=== PATIENT | female | born 1965 | race Two or more races ===

== ENCOUNTER 2025-05-04 13:43 | Inpatient (IN) | payer OTHER, SELFPAY ==
[2025-05-04 14:14] VITALS: BP 104/65; PULSE 100; RESP 20; TEMP 37.5; O2SAT 95
--- NOTE | 2025-05-04 14:32 | EKG_ITS ---
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
--- NOTE | 2025-05-04 14:34 | XR_ITS ---
Examination: Abdomen AP single view (3 images total Technique: AP portable supine abdomen, single view Exam date and time: 05/04/2025, 3:12 p.m. INDICATION: Upper gastric pain across mid abdomen for 2 days. COMPARISON: None. FINDINGS: At least moderate fecal material appears to be present in the right hemicolon including the proximal transverse colon. The proximal transverse colon is distended to 8.6 cm in caliber. There is mildly less pronounced gaseous distention of the remainder of the transverse colon. Mild versus moderate fecal material projects in the rectum, and very mild fecal material projects in the left hemicolon. There is mild gaseous distention of multiple small bowel loops in the left hemiabdomen most pronounced in the left lower quadrant and to a lesser degree the medial portion of the right lower quadrant. No free air identified. Nonspecific approximate 14 mm calcification is identified in the lower abdomen, projecting at the L3-L4 disc level on the left side. Very small phleboliths are seen in the pelvis bilaterally. Additional nonspecific calcification on the right side of the pelvis is seen, potentially within the gluteal subcutaneous fat. Difficult to assess on this exam. Impression: Nonspecific bowel findings. Findings could represent constipation and ileus. A follow-up contrast-enhanced CT is suggested for further evaluation.
--- NOTE | 2025-05-04 14:35 | EDNOTE_ITS ---
<Statement entered by Sarah Beth Bermudez MD - 05/05/25 16:14> I, Sarah Beth Bermudez MD, have reviewed the history, exam, and assessment of the patient. I have evaluated the patient independently and agree with the plan of care documented by [ ]. All diagnostic studies were reviewed and discussed. I confirm the diagnosis as documented by the Resident. I was present during the Medical Decision Making for this patient. The patient's plan of care was created between myself and the Resident and consistent with our discussion of the patient's case. ED Abdominal Pain RME/HPI General Chief Complaint: Abdominal Pain Stated complaint: SEVERE ABD PAIN 04/09 Time seen by provider: 05/04/25 16:17 Arrival date/time: 05/04/25 13:43 RME / HPI RME / HPI narrative: CC: Abdominal Pain Patient is a 60-year-old female with a past medical history of hypertension and and possible arthroplasty of the left knee about 1 week ago who presented to the emergency room via private vehicle with a chief complaint of severe abdominal pain, 10 out of 10. Pain is diffuse throughout all quadrants. Pain has been going on for about 1 week and worsened overnight. 10 out of 10. Patient has had decreased bowel movements no bowel movements reported for the past 2 to 3 days. Change in bowel consistency to yves. Post surgery for hernia patient has been taking [place] consistently. Denied history of abdominal surgery. No melena or hematochezia. No pyrexia or chills. KUB -distended large bowel loops, Tranverse colon 8.[address] abdomen/pelvis ordered Consult Gastroenterology 7:00 PM-Admit patient, repeat KUB on 05/05/2025, and add rectal tube Related Data Allergies Allergy/AdvReac Type Severity Reaction Status Date / Time Penicillins Allergy Severe Hives Verified 05/04/25 13:48 Sulfa (Sulfonamide Allergy Severe Hives Verified 05/04/25 13:48 Antibiotics) Review of Systems Review of Systems Narrative Review of Systems: General appearance: NO weight change, NO fatigue, NO weakness, NO fever, NO chills, NO night sweats, No cough Skin: NO rash, NO itching, NO sores, NO moles HEENT: NO Trauma, NO nausea, NO vomiting, NO visual changes, NO blurry vision, NO double vision, NO tinnitus, NO vertigo, NO ear discharge, NO rhinorrhea, NO stuffiness, NO sneezing, NO allergy, NO epistaxis. NO Hoarseness, NO sore throat, NO swollen neck. Cardiac: NO Palpitations, NO dyspnea on exertion, NO orthopnea, NO paroxysmal nocturnal dyspnea, NO edema Respiratory: NO Shortness of Breath, NO Wheezing, NO Cough, NO Sputum, NO hemoptysis GI:Yes appetite, Yes nausea, NO vomiting, NO dysphagia, Yes changes in bowel frequency, NO stool color, NO diarrhea, Yes constipation, NO hemetemesis, NO hemorrhoids, NO melena, NO hematechezia, yes abdominal pain, NO jaundice Renal: NO frequency, NO hesitancy, NO urgency, NO hematuria, NO nocturia, NO incontinence MSK: NO muscle weakness, NO gout, NO arthritis, NO muscle stiffness Neuro: NO headaches, NO tremors, NO weakness, NO paralysis, NO seizures, NO loss of consciousness, NO numbness. Hem: NO anemia, NO easy bruising/bleeding, NO petechiae, NO purpura Endo: NO heat/cold intolerance, NO excessive sweating, NO polyuria, NO polydipsia, NO polyphagia, NO thyroid problems, NO diabetes Pysch: NO mood, NO anxiety, NO depression ED Exam Narrative Physical exam: General Appearance: Alert & Oriented X3, well-nourished female who is lying in bed in acute distress, secondary to diffuse abdominal pain HEENT: Skull symmetrical and atraumatic. Conjunctivae pink and moist. Pupils equal, round, reactive to light and accommodation (PERRL). External ear without lesion or discharge. Straight, nares patient, mucosa pink, no discharge. Cardio: Normal Rate and Rhythm with S1 and S2 heart sounds. No murmurs or extra heart sounds auscultated. No bruits on carotid auscultation. No peripheral edema or cyanosis. Lungs: Symmetric with good expansion. Chest and back non-tender. Breath sounds vesicular without crackles, wheezing or rhonchi Abdomen: Diffuse-tenderness, Non-distended, hyporeactive Reactive Bowel Sounds Neuro: Alert, cooperative, oriented to person, place, and time. Speech clear. CN grossly intact. Upper motor strength 5/5 and Lower motor strength 5/5. Sensation intact. Course Quality Measures none Orders Category Date Time Status Location Man Q4H START 00 Care 05/04/25 15:46 Active Continuous Pulse Oximetry NOW Care 05/04/25 15:46 Completed EKG (ED ONLY) *Do not use* NOW Care 05/04/25 14:32 Completed Insert IV NOW Care 05/04/25 15:46 Active Insert Rectal Tube QSHIFT Care 05/04/25 19:11 Active NPO NOW Care 05/04/25 15:48 Active Consult to Gastroenterology Stat Cons 05/04/25 19:09 Ordered Diet NPO (NOW) Diet 05/04/25 15:[address] abdomen pelvis wo con Stat Exams 05/04/25 15:37 Completed EKG (ED Only) Stat Exams 05/04/25 14:32 Draft KUB [XR abdomen 1V] Routine Exams 05/05/25 06:00 Ordered KUB [XR abdomen 1V] Stat Exams 05/04/25 14:34 Completed Alcohol, Urine Stat Lab 05/04/25 16:25 Completed Blood Culture (Lab) Stat Lab 05/04/25 16:06 Received CBC Stat Lab 05/04/25 14:48 Completed Comprehensive Metabolic Panel Stat Lab 05/04/25 14:48 Completed Drug Screen,Urine Stat Lab 05/04/25 16:25 Completed HCG Qualitative,Urine Stat Lab 05/04/25 16:25 Completed Lactic Acid [Lactate (Lactic Acid)] Stat Lab 05/04/25 16:00 Completed Lactic Acid, 3 HR Stat Lab 05/04/25 19:15 Ordered Lipase Stat Lab 05/04/25 14:48 Completed Magnesium Stat Lab 05/04/25 14:48 Completed Partial Thromboplastin Time Stat Lab 05/04/25 14:48 Completed Prothrombin Time with INR Stat Lab 05/04/25 14:48 Completed Urinalysis, C/S if Indicated Stat Lab 05/04/25 16:25 Completed Urine Culture Stat Lab 05/04/25 16:25 Received HYDROmorphone INJ [Dilaudid Inj] Med 05/04/25 17:55 Discontinued 1 mg IVP X1 ONE Morphine* Inj Med 05/04/25 14:44 Discontinued 2 mg IM X1 ONE Morphine* Inj Med 05/04/25 15:32 Discontinued 2 mg IM X1 ONE Morphine* Inj Med 05/04/25 14:33 Discontinued 2 mg IVP X1 ONE Morphine* Inj Med 05/04/25 15:45 Discontinued 2 mg IVP X1 ONE Ondansetron Inj [Zofran Inj] Med 05/04/25 15:46 Active 4 mg IVP Q6HR PRN Ringers Lactated 1000 ml [Lactated Ringers] 1,000 ml Med 05/04/25 17:23 Dis continued IV 999 mls/hr Ringers Lactated 1000 ml [Lactated Ringers] 1,000 ml Med 05/04/25 17:23 Discontinued IV 999 mls/hr Ringers Lactated 1000 ml [Lactated Ringers] 1,000 ml Med 05/04/25 17:55 Discontinued IV 999 mls/hr Ringers Lactated 500 ml [Lactated Ringers] 500 ml Med 05/04/25 18:00 Discontinued IV 999 mls/hr ceFAZolin/D5W 1 GM IVPB [Ancef Ivpb] Med 05/04/25 15:41 Discontinued 1 gm in 50 ml IV X1 cefTRIAXone/D5w 1gm IV premix [Rocephin/D5w 1gm IV Med 05/04/25 15:56 Discontinued premix] 1 gm in 50 ml IV X1 metroNIDAZOLE/NS 500 MG IVPB [Flagyl 500 mg IV] Med 05/04/25 15:42 Discontinued 500 mg in 100 ml IV X1 Vital Signs Vital signs: Vital Signs Temperature 99.5 F 05/04/25 14:14 Pulse Rate 100 05/04/25 14:14 Respiratory Rate 20 05/04/25 14:14 Blood Pressure 104/65 05/04/25 14:14 Pulse Oximetry (%) 95 05/04/25 14:14 Oxygen Delivery Method Room Air 05/04/25 14:14 Abdominal Pain MDM Patient data External records reviewed:: None Clinical information provided by:: patient and family Social determinants that could affect healthcare access:: none Patient has the following chronic illnesses:: History of hypertension and recent left knee surgery How is presenting disease/condition affected by chronic disease/condition?: exacerbated by (by recent surgery ) Evaluation data The following diagnostics were reviewed and interpreted by me:: lab results and EKG tracing(s) Lab and/or radiology exams considered but not ordered:: None Interpretation Summary: Sepsis-elevated WBC, HR >90, Lactic acid, UTI, & distended large bowel Medications / Prescriptions Medications or Prescriptions considered but not ordered:: none Medication administrations:: Medication Administration History Ondansetron HCl (Ondansetron Inj 2 Mg/Ml Inj 2 Ml) 4 mg IVP Q6HR PRN; Protocol PRN Reason: NAUSEA OR VOMITING Stop: 06/03/25 15:45 Last Admin: 05/04/25 16:01 Dose: 4 mg Documented By: MIREILLE Discontinued Medications Hydromorphone HCl (Hydromorphone Inj 2 Mg/Ml Vial) 1 mg IVP X1 ONE Stop: 05/04/25 17:56 Last Admin: 05/04/25 18:03 Dose: 1 mg Documented By: CARRIE Cefazolin Sodium/Dextrose (Ancef Ivpb) 1 gm in 50 mls @ 100 mls/hr IV X1 ONE Stop: 05/04/25 16:10 Last Admin: 05/04/25 16:00 Dose: Not Given Documented By: MIREILLE Non-Admin Reason: Cancelled by Provider Metronidazole (Flagyl 500 Mg Iv) 500 mg in 100 mls @ 100 mls/hr IV X1 ONE Stop: 05/04/25 16:41 Last Infusion: 05/04/25 18:46 Dose: Infused Documented By: Admin: 05/04/25 17:41 Dose: 100 mls/hr Documented By: CARRIE Ceftriaxone Sodium/Dextrose (Rocephin/D5w 1gm Iv Premix) 1 gm in 50 mls @ 100 mls/hr IV X1 ONE Stop: 05/04/25 16:25 Last Infusion: 05/04/25 16:40 Dose: Infused Documented By: Admin: 05/04/25 16:08 Dose: 100 mls/hr Documented By: MIREILLE Lactated Ringer's (Lactated Ringers) 1,000 mls @ 999 mls/hr IV .Q1H1M ONE Stop: 05/04/25 18:23 Last Infusion: 05/04/25 18:46 Dose: Infused Documented By: Admin: 05/04/25 17:39 Dose: 999 mls/hr Documented By: CARRIE Lactated Ringer's (Lactated Ringers) 1,000 mls @ 999 mls/hr IV .Q1H1M ONE Stop: 05/04/25 18:23 Last Admin: 05/04/25 17:42 Dose: Not Given Documented By: GM Non-Admin Reason: Discontinued Lactated Ringer's (Lactated Ringers) 500 mls @ 999 mls/hr IV .Q31M ONE Stop: 05/04/25 18:30 Lactated Ringer's (Lactated Ringers) 1,000 mls @ 999 mls/hr IV .Q1H1M ONE Stop: 05/04/25 18:55 Morphine Sulfate (Morphine Sulf Inj 4 Mg/Ml Vial) 2 mg IVP X1 ONE Stop: 05/04/25 14:34 Last Admin: 05/04/25 14:55 Dose: Not Given Documented By: Non-Admin Reason: Cancelled by Provider Morphine Sulfate (Morphine Sulf Inj 4 Mg/Ml Vial) 2 mg IM X1 ONE Stop: 05/04/25 14:45 Last Admin: 05/04/25 14:53 Dose: 2 mg Documented By: Morphine Sulfate (Morphine Sulf Inj 4 Mg/Ml Vial) 2 mg IM X1 ONE Stop: 05/04/25 15:33 Last Admin: 05/04/25 16:01 Dose: Not Given Documented By: MIREILLE Non-Admin Reason: Cancelled by Provider Morphine Sulfate (Morphine Sulf Inj 4 Mg/Ml Vial) 2 mg IVP X1 ONE Stop: 05/04/25 15:46 Last Admin: 05/04/25 15:59 Dose: 2 mg Documented By: MIREILLE same as above Consultations Consultation(s) initiated? (list below): No Diagnosis Differential diagnosis abdominal pain: abdominal pain, acute appendicitis, constipation, pancreatitis and small bowel obstruction Most likely diagnosis given after review of the tests above:: Concern for sepsis secondary to UTI and concern for intra-abdominal infection with possible large bowel obstruction, KUB and CT Abdomen noted to have distended bowels. Consulted GI, Dr. Alonzo, recommending patient be admitted for large bowel distention, constipation, and concern for large bowel obstruction. Repeat KUB AM & insert rectal tube. Admission Indicated Admission indicated?: indicated Explain why admission is indicated or not indicated:: Admission indicated given sepsis with possible source of infection of uti and intra-abdominal - The patient's plan was discussed with attending Dr. Aidan Ding MD PGY2 Internal Medicine Admission Request Was there a request for admission?: No Disposition Plan Disposition Plan: Admit Discharge Plan Plan Patient Disposition: Admit Acute Care w/in Hospital Patient condition on transfer: Stable Prescriptions/Referrals Referrals: No Primary/Family,Physician [Primary Care Provider] - In 1 week Problem List Clinical Impression: Large bowel obstruction Patient/Caregiver Discharge Instructions Print Language: Azeri Stand Alone Forms: [employer] Award Info., Patient Portal Info Letter
[2025-05-04] MEDS: MORPHINE SULF INJ 4 MG/ML VIAL 2 MG IM (14:53)
[2025-05-04 15:06] LABS: Basophils # (Auto) 0.1 Thou/mm3 (0.0-0.2); Basophils % (Auto) 1 % (0-2.5); Eosinophils # (Auto) 0.2 Thou/mm3 (0.0-0.5); Eosinophils % (Auto) 1 % (0-10); Hematocrit 33.2 % (36.0-46.0); Hemoglobin 11.1 g/dL (12.0-16.0); Immature Granulocytes Auto 0.10 Thou/mm3 (0.00-0.00); Lymphocytes # (Auto) 2.4 Thou/mm3 (1.0-4.8); Lymphocytes % (Auto) 12 % (10-50); Mean Corpuscular HGB Conc 33.4 g/dl (31.0-37.0); Mean Corpuscular Hemoglobin 27.3 pg (25.0-35.0); Mean Corpuscular Volume 82 fL (80-100); Monocytes # (Auto) 1.8 Thou/mm3 (0.0-0.8); Monocytes % (Auto) 9 % (0-12); Neutrophils # (Auto) 15.5 Thou/mm3 (1.8-7.7); Neutrophils % (Auto) 77 % (37-80); Nucleated Red Blood Cell # 0.00 Thou/mm3 (0.00-0.00); Nucleated Red Blood Cell % 0 /100 WBC (0); Platelet Count 419 Thou/mm3 (140-440); RDW Standard Deviation 42.4 fL (36.4-46.3); Red Blood Count 4.06 Miln/mm3 (4.00-5.20); White Blood Count 20.1 Thou/mm3 (3.6-11.0)
[2025-05-04 15:20] LABS: Alanine Aminotransferase 18 U/L (10-49); Albumin, Serum 4.4 gm/dL (3.4-4.8); Albumin/Globulin Ratio 1.9 (1.2-2.2); Alkaline Phosphatase 112 U/L (46-116); Anion Gap 10 (7-16); Aspartate Amino Transferase 25 U/L (0-34); BUN/Creatinine Ratio 19 Ratio (12-20); Bilirubin,Total 0.8 mg/dL (0.3-1.2); Blood Urea Nitrogen 15 mg/dL (9-23); Calcium 9.4 mg/dL (8.3-10.6); Calcium (Corrected) 9.4 mg/dL (8.5-10.1); Carbon Dioxide 20.3 mMol/L (20.0-31.0); Chloride 102 mMol/L (98-107); Creatinine (Component) 0.8 mg/dL (0.6-1.3); Globulin 2.3 gm/dL (2.3-3.5); Glucose 155 mg/dL (74-106); Lipase 30 U/L (12-53); Magnesium 2.2 mg/dL (1.6-2.6); Osmolality,Calculated 268 (275-295); Potassium 4.0 mMol/L (3.4-5.1); Sodium 132 mMol/L (136-145); Total Protein 6.7 gm/dL (5.7-8.2); eGFR > 60 See Note
[2025-05-04 15:22] LABS: INR 1.0 (0.9-1.3); Partial Thromboplastin Time 24.6 Seconds (22.0-36.0); Prothrombin Time 10.5 Seconds (9.0-12.2)
--- NOTE | 2025-05-04 15:37 | XR_ITS ---
Examination: CT abdomen and pelvis without contrast. Coronal 3-D reconstructions. Sagittal 2-D reconstructions. Date and time of exam: 05/04/2025, 5:24 p.m. INDICATION: Epigastric pain. Assessment for ileus versus bowel obstruction. COMPARISON: Same day abdominal radiograph. CTDI: vol (mGy): 8.40 DLP: (mGycm): 519 Technique: Axial images of the abdomen have been obtained, 3 mm slice thickness Intravenous contrast material has not been administered. Low dose protocols were performed. One or more of the following dose reduction techniques were used; automated exposure control, adjustment of the mA and/or KV according to patient size, use of iterative reconstruction technique. Findings: Lack of intravenous contrast limits evaluation of solid organs, vasculature, and lymph nodes. Lower thorax: Mild bibasilar dependent subsegmental atelectases are present. No pleural effusions. Hernia is present, measuring approximately 5.7 x 4.9 cm in transaxial dimensions without acute complication. Heart size is within normal limits. Minimal right-sided pericardial fluid noted. Liver: Hepatic size and contours are within normal limits. Punctate calcific foci are visualized in the posterior aspect of the right hepatic lobe. Biliary system: Prominent gallbladder distention may be due to fasting state. No calcified gallstones or findings concerning for acute cholecystitis or biliary ductal obstruction. Spleen: Within normal limits of size. No discrete mass. Pancreas: Generalized pancreatic atrophy but without concerning main duct dilatation or acute inflammation. Adrenal glands: No significant findings. Kidneys: No contour-deforming solid mass. No calculi or hydronephrosis. Bladder: Suboptimal assessment due to under distention but no calculus is seen. Pelvic organs: No masses or acute findings. Bowel/Peritoneal cavity: Limited assessment without IV and oral contrast as well as segments of underdistention. There is extensive distention of the colon from the cecum through the transverse colon with relatively less pronounced distention of the descending colon. The cecum is dilated up to 8.6 cm in caliber. The mid transverse colon measures 6.1 cm in caliber, and the proximal descending colon measures approximately 4 cm in caliber. There is a relatively ahaustral appearance of the descending colon. There is a large amount of liquid with intermixed gas and fecal matter in the ascending colon and transverse colon, in addition to the descending colon there is slight mural thickening and very mild diffuse pericolonic fat stranding throughout the descending colon. There is no significant mural thickening involving the majority of the transverse colon or of the ascending colon including cecum. No evidence for pneumatosis coli. There is a moderate degree of condensed fecal matter throughout the sigmoid colon and to a mild degree in the rectum. Sigmoid diverticulosis is present without evidence for acute diverticulitis. There is no evidence for an obstructing distal colonic mass. Small bowel up to demonstrate mild distention with scattered gas-liquid levels but without evidence for inflammatory mural thickening, pneumatosis or mass. No evidence for ascites, pneumoperitoneum or portal venous gas. Lymph nodes/retroperitoneum: Densely calcified posterior mesenteric lymph node at midline measures approximately 11 mm and correlates with the preceding radiographic finding. Additional dense calcified mesenteric lymph node about the midline measures 11 mm AP as well. No pathologically enlarged lymph nodes or other masses. No hematoma or other abnormal collections. Vessels: Aortobiiliac atherosclerotic calcifications without aneurysm. Normal caliber abdominal aorta. Compression of the left common iliac vein between the right common iliac artery and underlying vertebra noted, compatible with May-Thurner syndrome. Abdominal/Pelvic wall: Minimal fat-containing umbilical hernia noted. Musculoskeletal: Multifocal degenerative changes with otherwise no evidence for recent fracture or aggressive lesion. IMPRESSION: Redemonstration of extensive distention of the colon, most severely the ascending colon followed by the transverse colon with gas-liquid and fecal matter throughout. There is slight mural thickening and pericolonic fat stranding involving the descending colon which is relatively ahaustral in appearance. There is no evidence for an obstructing mass although there is an condensed amount of fecal matter in the sigmoid colon but to a lesser degree the rectum. The findings are nonspecific but differential diagnosis includes Luis syndrome or potentially toxic colitis. No evidence for pneumatosis coli, portal venous gas, pneumoperitoneum or ascites. Hiatal hernia without acute complication.
[2025-05-04] MEDS: MORPHINE SULF INJ 4 MG/ML VIAL 2 MG IVP (15:59)
[2025-05-04] MEDS: ONDANSETRON INJ 2 MG/ML INJ 2 ML 4 MG IVP (16:01)
[2025-05-04] MEDS: cefTRIAXone/D5w 1gm IV premix 1 GM/50 ML BAG IV (16:08)
[2025-05-04 16:17] VITALS: BP 110/55; PULSE 95; RESP 16; TEMP 37.1; O2SAT 96; BMI 31.6
[2025-05-04 16:18] LABS: Lactate (Lactic Acid) 2.2 mMol/L (0.4-2.0)
[2025-05-04 16:35] LABS: Collection Type, Urine Clean Catch
[2025-05-04 16:42] LABS: HCG Qualitative,Urine Negative
[2025-05-04 16:49] LABS: Bacteria,Urine 4+; Bilirubin,Urine 1+ (Negative); Blood,Urine Negative (Negative); Color,Urine Drk-Yellow (Lt Yel-Yel); Glucose, Urine Negative (Negative); Hyaline Casts,Urine 1 /hpf (0-1); Ketones,Urine Trace (Negative); Leukocyte Esterase,Urine Positive (Negative); Nitrite,Urine Negative (Negative); PH,Urine 6.0 (5.0-7.0); Protein,Urine 1+ (Neg - Trace); RBC,Urine 13 /hpf (0-3); Specific Gravity,Urine 1.026 (1.001-1.035); Squamous Epithelial Cell,Urine 10 /hpf (0-5); Urobilinogen,Urine 6.0 mg/dL (0.0-1.0); WBC,Urine 86 /hpf (0-5)
[2025-05-04 16:52] LABS: Alcohol, Urine Negative (Negative); Amphetamine/Methamp Scrn,U Negative (Negative); Barbiturate Screen,Urine Negative (Negative); Benzodiazepines Screen,Urine Negative (Negative); Benzoylecgonine Screen, Ur Negative (Negative); Fentanyl Screen,Urine Negative (Negative); Opiate Screen,Urine Positive (Negative); THC Screen,Urine Negative (Negative)
[2025-05-04 17:18] LABS: Clarity,Urine Cloudy (Clear/Hazy); Culture Indicated,Urine Yes
--- NOTE | 2025-05-04 17:19 | PC.NURSE ---
PT'S DAUGHTER, ISAK, UPDATED REGARDING PT'S POC AT BEDSIDE.
[2025-05-04] MEDS: RINGERS LACTATED 1000 ML 1,000 ML 999 ML IV ×2 (17:39→19:32)
[2025-05-04] MEDS: metroNIDAZOLE/NS 500 MG IVPB 500 MG/100 ML BAG 100 MG IV (17:41)
[2025-05-04] MEDS: HYDROmorphone INJ 2 MG/ML VIAL 1 MG IVP (18:03)
[2025-05-04 18:05] VITALS: BP 125/69; PULSE 107; RESP 16; TEMP 36.9; O2SAT 95
--- NOTE | 2025-05-04 18:38 | PD.EDADDENDU ---
Emergency Room Addendum Addendum Narrative: 1800: Care assumed from Dr. Ding, attending Dr. Bermudez. Past medical, surgical, social and family history reviewed. Vitals and home medications reviewed. Results and treatment plan discussed. I will assume the care of the patient at this time and will follow the patient. Please refer to the emergency department record for history and examination from initial visit.
--- NOTE | 2025-05-04 19:12 | PD.IMCONS ---
HPI Data of Consult Primary Care Provider: Physician No Primary/Family Consult Narrative Reason for consult: Abdominal distention, pain abdomen, abnormal CTAP History of present illness: Full consult to follow after review of the imaging studies cc:: cc: Meds Home Medications and Allergies Home Medications ?Medication ?Instructions ?Recorded ?Confirmed ?Type amlodipine 10 mg tablet 10 mg PO DAILY 05/05/25 05/05/25 History aspirin 81 mg chewable tablet 1 tab PO Q12HR 05/05/25 05/05/25 History celecoxib 200 mg capsule 200 mg PO Q12H PRN pain 05/05/25 05/05/25 History losartan 100 mg tablet 100 mg PO DAILY 05/05/25 05/05/25 History pregabalin 150 mg capsule 150 mg PO Q12H PRN pain 05/05/25 05/05/25 History Allergies Allergy/AdvReac Type Severity Reaction Status Date / Time Penicillins Allergy Severe Hives Verified 05/04/25 13:48 Sulfa (Sulfonamide Allergy Severe Hives Verified 05/04/25 13:48 Antibiotics) Exam Vital Signs Temp Pulse Resp BP Pulse Ox O2 Del Method 98.4 F 107 H 16 125/69 95 Room Air 05/04/25 18:05 05/04/25 18:05 05/04/25 18:05 05/04/25 18:05 05/04/25 18:05 05/04/25 18:05 Results Labs 05/05/25 04:50 05/05/25 04:50 Labs: Short CBC 05/04/25 Range/Units 14:48 WBC 20.1 H (3.6-11.0) Thou/mm3 Hgb 11.1 L (12.0-16.0) g/dL Hct 33.2 L (36.0-46.0) % Plt Count 419 (140-440) Thou/mm3 BMP 05/04/25 14:48 Sodium 132 L Potassium 4.0 Chloride 102 Carbon Dioxide 20.3 BUN 15 Creatinine 0.8 Glucose 155 H Calcium 9.4 Liver Function 05/04/25 Range/Units 14:48 Total Bilirubin 0.8 (0.3-1.2) mg/dL AST 25 (0-34) U/L ALT 18 (10-49) U/L Alkaline Phosphatase 112 (46-116) U/L Albumin 4.4 (3.4-4.8) gm/dL Urine 05/04/25 Range/Units 16:25 Urine Color Drk-Yellow A (Lt Yel-Yel) Urine Clarity Cloudy A (Clear/Hazy) Urine pH 6.0 (5.0-7.0) Ur Specific [place] 1.026 (1.001-1.035) Urine Protein 1+ A (Neg - Trace) Urine Glucose (UA) Negative (Negative)
[2025-05-04 19:15] LABS: Reflex Lactate? Y
[2025-05-04] MEDS: RINGERS LACTATED 500 ML 500 ML 999 ML IV (19:32)
[2025-05-04 19:36] VITALS: BP 127/78; PULSE 114; RESP 18; TEMP 37.8; O2SAT 94
[2025-05-04 19:50] VITALS: BP 127/78; PULSE 115; RESP 16; O2SAT 93
[2025-05-04 20:04] LABS: Lactic Acid, 3 HR 2.1 mMol/L (0.4-2.0)
[2025-05-04] MEDS: HYDROmorphone INJ 2 MG/ML VIAL 0.5 MG IVP (21:26)
[2025-05-04] MEDS: RINGERS LACTATED 1000 ML 1,000 ML 60 ML IV (21:27)
--- NOTE | 2025-05-04 22:07 | ESHP_ITS ---
<Statement entered by Presley Barrientos MD - 05/05/25 07:06> I have discussed and was present for the essential components of the history, physical examination, diagnosis, and treatment plan with the resident. I agree with the patient's care as documented by the resident and amended herein by me. Presley Barrientos MD FACP. Documentation for date of: 05/04/25 HPI History of Present Illness History of present illness: Patient is a 60-year-old female with a past medical history of hypertension and and possible arthroplasty of the left knee about 1 week ago who presented to the emergency room via private vehicle with a chief complaint of severe abdominal pain, 10 out of 10. ED Course Summary: Vitals: 104/65 HR 100 RR 20 T 99.5F O2 sat 95% Labs WBC 20.1 Hgb 11.1 Na 132 Imaging KUB -distended large bowel loops, Tranverse colon 8.6 cm CTAP: [place] syndrome or potentially toxic colitis Treatment: Morphine, LR, ceftriaxone, cefazolin, metronidazole, dilaudid, rectal tube placed Consults GI for toxic colitis Upon initial evaluation patient denies having any bowel movements for 1 week since her left knee surgery. Endorses pain is diffuse throughout all quadrants. Pain has been going on for about 2-3 days and worsened overnight. 10 out of 10 but improving with IV pain management. Patient has been taking [place] consistently. Denied history of abdominal surgery. No melena or hematochezia. No pyrexia or chills. She endorses some discomfort with urination and the urine sample is cola colored. Code: Full Insulin: No Medical Hx: HTN pre-diabetes Medications: Pending med rec, per chart review amlodipine 10mg losartan, pregabalin, elecoxib and aspirin Allergies: Penicillin (hives) sulfa drugs (blisters) Surgical history: L knee arthroplpasty 1 week ago Living: With sons while recovering Alcohol: Denies Cigarettes/tobacco: Denies Recreational drugs: Denies Patient admitted for psuedo large bowel obstruction vs toxic colitis All 12 systems reviewed and were negative except otherwise stated in HPI. Exam Vital Signs Temp Pulse Resp BP Pulse Ox O2 Del Method 100.1 F 115 H 16 127/78 93 L Room Air 05/04/25 19:36 05/04/25 19:50 05/04/25 19:50 05/04/25 19:50 05/04/25 19:50 05/04/25 19:50 Narrative Exam GENERAL APPEARANCE: AOx4. Uncomfortable, activity normal for age, well developed/ well nourished, no cyanosis, pallor, or diaphoresis. HEENT: Normocephalic atraumatic, no facial trauma, neck is supple. Lids/conjunctiva normal. Mucous membranes moist, nares normal, lips/teeth normal uvula midline without oral pharyngeal erythema, exudate or swelling TMs normal bilaterally. No lymphangitis/lymphedema. CARDIAC: Tachycardic, S1+S2 heard. No murmurs, rubs, or gallops noted RESPIRATORY: Minimal effort due to abdominal tenderness, speaks in full sentences, no tripod position, no accessory muscle use. Lungs clear to auscultation without rhonchi, wheezes, rales ABDOMINAL: NBS. Soft, ND, diffuse TTP sharp pain. No evidence of fluid wave. No pulsatile masses on exam, rebound tenderness, Humphrey sign or pain over Mcburney's point. MUSCLES/EXTREMITIES: L leg bruising and knee bandage from recent surgery DERM: Warm, pink and dry. No rashes, dermatoses, petechiae or lesions. NEUROLOGICAL: Speech is clear and appropriate. Normal level of consciousness. Gait and coordination are normal. 5/5 strength in all extremities. PSYCH: Normal mood and affect. Judgement/competence is appropriate Results: Labs 05/04/25 14:48 05/04/25 14:48 Labs: Short CBC 05/04/25 Range/Units 14:48 WBC 20.1 H (3.6-11.0) Thou/mm3 Hgb 11.1 L (12.0-16.0) g/dL Hct 33.2 L (36.0-46.0) % Plt Count 419 (140-440) Thou/mm3 BMP 05/04/25 14:48 Sodium 132 L Potassium 4.0 Chloride 102 Carbon Dioxide 20.3 BUN 15 Creatinine 0.8 Glucose 155 H Calcium 9.4 Liver Function 05/04/25 Range/Units 14:48 Total Bilirubin 0.8 (0.3-1.2) mg/dL AST 25 (0-34) U/L ALT 18 (10-49) U/L Alkaline Phosphatase 112 (46-116) U/L Albumin 4.4 (3.4-4.8) gm/dL Urine 05/04/25 Range/Units 16:25 Urine Color Drk-Yellow A (Lt Yel-Yel) Urine Clarity Cloudy A (Clear/Hazy) Urine pH 6.0 (5.0-7.0) Ur Specific [place] 1.026 (1.001-1.035) Urine Protein 1+ A (Neg - Trace) Urine Glucose (UA) Negative (Negative) Quality Measures Quality Measures none Medications Home Medications and Allergies Home Medications ?Medication ?Instructions ?Recorded ?Confirmed ?Type amlodipine 10 mg tablet 10 mg PO DAILY 05/05/2511/22 History aspirin 81 mg chewable tablet 1 tab PO Q12HR 05/05/25 05/05/25 History celecoxib 200 mg capsule 200 mg PO Q12H PRN pain 11/2205/05/25 History losartan 100 mg tablet 100 mg PO DAILY 05/05/2511/22 History pregabalin 150 mg capsule 150 mg PO Q12H PRN pain 11/2205/05/25 History Allergies Allergy/AdvReac Type Severity Reaction Status Date / Time Penicillins Allergy Severe Hives Verified 05/04/25 13:48 Sulfa (Sulfonamide Allergy Severe Hives Verified 05/04/25 13:48 Antibiotics) Visit Medications Acetaminophen (Acetaminophen 325 Mg Tablet) 650 mg PO Q6H PRN PRN Reason: Fever >100.4 or pain 1-3 Stop: 06/03/25 20:59 Hydromorphone HCl (Hydromorphone Inj 2 Mg/Ml Vial) 0.5 mg IVP Q4HR PRN PRN Reason: pain 7-10 Stop: 05/09/25 21:18 Last Admin: 05/04/25 21:26 Dose: 0.5 mg Lactated Ringer's (Lactated Ringers) 1,000 mls @ 60 mls/hr IV .[id number] KIRAN Stop: 06/03/25 21:13 Last Admin: 05/04/25 21:27 Dose: 60 mls/hr Ondansetron HCl (Ondansetron Inj 2 Mg/Ml Inj 2 Ml) 4 mg IVP Q6HR PRN; Protocol On Hold: 05/04/25 22:01 PRN Reason: NAUSEA OR VOMITING Stop: 06/03/25 15:45 Last Admin: 05/04/25 16:01 Dose: 4 mg Pantoprazole Sodium (Pantoprazole Inj 40 Mg Vial) 40 mg IVP QDAY KIRAN Stop: 06/04/25 08:59 Discontinued Medications Benzocaine (Benzocaine 20% (Hurricaine) [place] 1 Dose) 0 dose TOP X1 ONE Stop: 05/04/25 21:12 Last Admin: 05/04/25 21:54 Dose: Not Given Hydromorphone HCl (Hydromorphone Inj 2 Mg/Ml Vial) 1 mg IVP X1 ONE Stop: 05/04/25 17:56 Last Admin: 05/04/25 18:03 Dose: 1 mg Cefazolin Sodium/Dextrose (Ancef Ivpb) 1 gm in 50 mls @ 100 mls/hr IV X1 ONE Stop: 05/04/25 16:10 Last Admin: 05/04/25 16:00 Dose: Not Given Metronidazole (Flagyl 500 Mg Iv) 500 mg in 100 mls @ 100 mls/hr IV X1 ONE Stop: 05/04/25 16:41 Last Infusion: 05/04/25 18:46 Dose: Infused Ceftriaxone Sodium/Dextrose (Rocephin/D5w 1gm Iv Premix) 1 gm in 50 mls @ 100 mls/hr IV X1 ONE Stop: 05/04/25 16:25 Last Infusion: 05/04/25 16:40 Dose: Infused Lactated Ringer's (Lactated Ringers) 1,000 mls @ 999 mls/hr IV .Q1H1M ONE Stop: 05/04/25 18:23 Last Infusion: 05/04/25 18:46 Dose: Infused Lactated Ringer's (Lactated Ringers) 1,000 mls @ 999 mls/hr IV .Q1H1M ONE Stop: 05/04/25 18:23 Last Admin: 05/04/25 17:42 Dose: Not Given Lactated Ringer's (Lactated Ringers) 500 mls @ 999 mls/hr IV .Q31M ONE Stop: 05/04/25 18:30 Last Infusion: 05/04/25 20:50 Dose: Infused Lactated Ringer's (Lactated Ringers) 1,000 mls @ 999 mls/hr IV .Q1H1M ONE Stop: 05/04/25 18:55 Last Infusion: 05/04/25 20:50 Dose: Infused Morphine Sulfate (Morphine Sulf Inj 4 Mg/Ml Vial) 2 mg IVP X1 ONE Stop: 05/04/25 14:34 Last Admin: 05/04/25 14:55 Dose: Not Given Morphine Sulfate (Morphine Sulf Inj 4 Mg/Ml Vial) 2 mg IM X1 ONE Stop: 05/04/25 14:45 Last Admin: 05/04/25 14:53 Dose: 2 mg Morphine Sulfate (Morphine Sulf Inj 4 Mg/Ml Vial) 2 mg IM X1 ONE Stop: 05/04/25 15:33 Last Admin: 05/04/25 16:01 Dose: Not Given Morphine Sulfate (Morphine Sulf Inj 4 Mg/Ml Vial) 2 mg IVP X1 ONE Stop: 05/04/25 15:46 Last Admin: 05/04/25 15:59 Dose: 2 mg Assessment & Plan Plan Patient is a 60-year-old female with a past medical history of hypertension and and possible arthroplasty of the left knee about 1 week ago who presented to the emergency room via private vehicle with a chief complaint of severe abdominal pain, 10 out of 10. Patient admitted for psuedo large bowel obstruction vs toxic colitis. #Psuedo large bowel obstruction vs toxic colitis #Lactic acidosis Recent L knee surgery, on opiates, has no BM in one week. Worsening abdominal pain. lactic acid 2.1 WBC 20.1. Imaging KUB -distended large bowel loops, Tranverse colon 8.6 cm CTAP: [place] syndrome or potentially toxic colitis Plan: -GI consulted (Dr. Alonzo) -Rectal tube placed -IV tylenol pain control - limit to 4g/day -Dilaudid pain control -Ceftriaxone 1g IV Q12HR -IV LR -NPO #UTI Urinary symptoms, Urine cola colored, +1 protein RBC 13 WBC 86 Sq epithelial 10H Bacteria +4, not a clean catch, but also lots of blood and dark color. Plan: -FUP urine cx -Ceftriaxone 1g IV Q12HR #Asymptomatic Hyponatremia Na 132 Could be dilutional due to mass fluids given in ED. Plan: -CTM -Consider fluid restrictions following GI procedure and resolution of lactic acidosis #Hx of HTN Can consider restarting home meds of amlodipine or losartan pending med rec Health Maintenance: Code status: Full DVT prophylaxis: SCDs pending GI procedure GI prophylaxis: protonix Diet: NPO pending procedure [place]: None Lines: PIV Supplemental O2: None Disposition: Med surg Patient seen and reviewed with attending Dr. Barrientos. Note written by Nicko Cullen MD PGY-1
[2025-05-04 22:18] VITALS: TEMP 36.8
[2025-05-04] MEDS: HYDROmorphone INJ 2 MG/ML VIAL IVP (23:49)
[2025-05-04] MEDS: ACETAMINOPHEN IVPB 1,000 MG/100 ML VIAL 250 MG IV (23:54)
[2025-05-05] VITALS (12 sets, daily range): BP systolic 93–153; BP diastolic 60–88; PULSE 91–112; RESP 14–97; TEMP 36.4–38.2; O2SAT 92–94; BMI 29.9
[2025-05-05] MEDS: ONDANSETRON INJ 2 MG/ML INJ 2 ML 4 MG IVP ×2 (00:34→09:07)
[2025-05-05] MEDS: cefTRIAXone/D5w 1gm IV premix 1 GM/50 ML BAG IV ×3 (00:35→20:07)
--- NOTE | 2025-05-05 03:09 | PC.NURSE ---
re med rec- per daughter she will bring med lists or home med bottles later today.
[2025-05-05] MEDS: HYDROmorphone INJ 2 MG/ML VIAL 0.5 MG IVP ×3 (03:15→20:59)
--- NOTE | 2025-05-05 04:12 | PC.NURSE ---
pt complain of unable to void- Random bladder [id number].
[2025-05-05] MEDS: ACETAMINOPHEN IVPB 1,000 MG/100 ML VIAL 250 MG IV ×2 (05:04→11:57)
--- NOTE | 2025-05-05 06:00 | XR_ITS ---
Examination: Abdomen AP single view Technique: AP portable supine abdomen, single view (2 images total) Exam date and time: 05/05/2025, 5:38 a.m. INDICATION: Large bowel distention COMPARISON: Abdominal radiographs 05/04/2025 at 3:[address] abdomen pelvis 05/04/2025 at 5:24 p.m. FINDINGS: Redemonstration of abnormal colonic distention, severely involving the ascending colon and in particular the cecum, measuring approximately 11.2 cm in caliber, with greater diffuse distention of the transverse colon since prior radiographs. Proximal transverse colon measures approximately 9 cm in caliber, previously 8.6 cm in caliber, and appears to be more stool in the transverse colon since prior exam. There is stool and more air in the ascending colon including cecum compared to the prior radiographs. There is persistent gaseous distention of multiple small bowel loops. No apparent distention of the descending colon as before. No overt evidence for pneumatosis. No evidence for portal venous gas or pneumoperitoneum. Redemonstration of dense calcified mesenteric nodules in the lower abdomen, to the left of midline. IMPRESSION: Progressive colonic distention with with gas and large amount of fecal matter as described. No evidence for pneumatosis or pneumoperitoneum.
[2025-05-05 06:28] LABS: Basophils # (Auto) 0.1 Thou/mm3 (0.0-0.2); Basophils % (Auto) 1 % (0-2.5); Eosinophils # (Auto) 0.1 Thou/mm3 (0.0-0.5); Eosinophils % (Auto) 1 % (0-10); Hematocrit 29.1 % (36.0-46.0); Hemoglobin 9.5 g/dL (12.0-16.0); Immature Granulocytes Auto 0.04 Thou/mm3 (0.00-0.00); Lymphocytes # (Auto) 1.6 Thou/mm3 (1.0-4.8); Lymphocytes % (Auto) 18 % (10-50); Mean Corpuscular HGB Conc 32.6 g/dl (31.0-37.0); Mean Corpuscular Hemoglobin 26.9 pg (25.0-35.0); Mean Corpuscular Volume 82 fL (80-100); Monocytes # (Auto) 1.2 Thou/mm3 (0.0-0.8); Monocytes % (Auto) 13 % (0-12); Neutrophils # (Auto) 6.1 Thou/mm3 (1.8-7.7); Neutrophils % (Auto) 67 % (37-80); Nucleated Red Blood Cell # 0.00 Thou/mm3 (0.00-0.00); Nucleated Red Blood Cell % 0 /100 WBC (0); Platelet Count 311 Thou/mm3 (140-440); RDW Standard Deviation 43.7 fL (36.4-46.3); Red Blood Count 3.53 Miln/mm3 (4.00-5.20); White Blood Count 9.1 Thou/mm3 (3.6-11.0)
[2025-05-05 06:53] LABS: Alanine Aminotransferase 13 U/L (10-49); Albumin, Serum 3.4 gm/dL (3.4-4.8); Albumin/Globulin Ratio 2.0 (1.2-2.2); Alkaline Phosphatase 79 U/L (46-116); Anion Gap 9 (7-16); Aspartate Amino Transferase 18 U/L (0-34); BUN/Creatinine Ratio 21 Ratio (12-20); Bilirubin,Total 0.7 mg/dL (0.3-1.2); Blood Urea Nitrogen 17 mg/dL (9-23); Calcium 8.6 mg/dL (8.3-10.6); Calcium (Corrected) 9.1 mg/dL (8.5-10.1); Carbon Dioxide 23.3 mMol/L (20.0-31.0); Chloride 104 mMol/L (98-107); Creatinine (Component) 0.8 mg/dL (0.6-1.3); Estimated Creatinine Clearance 76.0 mL/min (>60); Globulin 1.7 gm/dL (2.3-3.5); Glucose 109 mg/dL (74-106); Magnesium 2.1 mg/dL (1.6-2.6); Osmolality,Calculated 274 (275-295); Phosphorous 4.5 mg/dL (2.4-5.1); Potassium 4.4 mMol/L (3.4-5.1); Sodium 136 mMol/L (136-145); Thyroid Stimulating Hormone 1.75 uIU/mL (0.55-4.78); Total Protein 5.1 gm/dL (5.7-8.2); eGFR > 60 See Note
--- NOTE | 2025-05-05 08:58 | PC.SS ---
Follow up note: Possible surgery. On IV antibiotic.
--- NOTE | 2025-05-05 10:01 | XR_ITS ---
CLINICAL INDICATION: verifiy NG tube placement TECHNIQUE: XR chest 1V post procedure COMPARISON: Abdominal radiograph earlier today, 5:[address] abdomen/pelvis 05/04/2025 FINDINGS: Interval placement of nasogastric tube, which mildly extends below the diaphragm but then reflects back above the diaphragm with its tip projecting in the retrocardiac space medially. The nasogastric tube is likely located within the hiatal hernia seen on prior CT. The cardiomediastinal silhouette is within normal limits of size for portable technique and patient's semiupright positioning. No evidence for acute congestive heart failure. Redemonstration of mildly elevated right hemidiaphragm. Hypoventilatory changes with very mild bibasilar subsegmental atelectasis. No airspace consolidation suggestive of pneumonia.. No mass detected. No pleural effusion or pneumothorax. No acute osseous abnormality detected. Chronic healed fracture deformity of the right clavicle. IMPRESSION: The nasogastric tube is likely located in the hiatal hernia and should be repositioned/advanced below the diaphragm into the mid gastric antrum. - This report was generated utilizing speech recognition software. -
--- NOTE | 2025-05-05 10:50 | ESCONSULT_ITS ---
HPI Data of Consult Consult date: 05/05/25 Requesting Physician: Presley Barrientos MD Admitting Provider: Presley Barrientos MD Attending Provider: Presley Barrientos MD Primary Care Provider: Physician No Primary/Family Consult Narrative Reason for consult: intestinal pseudoobstruction History of present illness: Patient is a 60-year-old female past medical significant for hypertension presented to the ED on 05/04/25 with chief complaint of abdominal pain. Per patient for the past 1 week she severe abdominal pain, 10 out of 10 in intensity, diffusely throughout all quadrants. She stated abdominal pain associated with severe bloating, decreased flatulence, decreased frequency of burping past 1 week. Patient also reports 4 episode of nonbloddy emesis in the ED. Last bowel movement was April 25, prior to that patient has occasional constipation for which she takes laxative but she does not recall the name of the medication. Also colonoscopy was done 2 years ago, per daughter at bedside the findings were normal. Per previous in 1995, however no other abdominal surgery. Patient patient had a left knee replacement 1 week ago for severe osteoarthritis. She was given [place] and Celebrex for 1 week. Patient endorses fever, chills, 1 day of burning sensation when she urinates, dysuria and urinary retention. She denies nausea, dizziness, palpitation and recent antibiotic use Labs significant for hemoglobin 9.5, hematocrit 29.1. BMP unremarkable. UA positive leukocyte esterase, urine RBC 13, urine WBC 86, urine bacteria 4+. Imaging KUB -distended large bowel loops, Tranverse colon 8.6 cm CTAP: Olar syndrome or potentially toxic colitis Gastroenterology was consulted for possible large bowel obstruction evaluation. Review of Systems Review of systems otherwise negative except what is mentioned above. Past Medical history: Surgical History: in 1995, left knee arthroplasty 1 week ago Home Medications: Amlodipine 10 mg, aspirin 1 tab, celecoxib 200 mg, losartan 100 mg, pregabalin 50 mg cc:: cc: Presley Barrientos MD Exam Vital Signs Temp Pulse Resp BP Pulse Ox O2 Del Method 97.5 F 98 20 102/70 93 L Room Air 05/05/25 07:50 05/05/25 07:50 05/05/25 07:50 05/05/25 07:50 05/05/25 07:50 05/05/25 07:50 Routine HEENT Exam Head: Present normocephalic and atraumatic Eye: Present EOMI, PERRL and normal accommodation ENT: Present mucous membranes dry Routine Respiratory Exam Respiratory: Present chest non-tender, lungs clear, normal breath sounds and no resp distress Routine Cardiovascular Exam Cardiovascular: Present RRR, S1 and S2 Routine Abdominal Exam Abdominal: Present soft, tenderness (diffusely ) and distended (midly ) Routine Extremities Exam Comments: left knee limiting ROM, edema, bruising clean bandage Routine Neurological Exam Neurological: Present alert, oriented X3 and CN II-XII intact Results Labs 05/05/25 04:50 05/05/25 04:50 Labs: Short CBC 05/04/25 05/05/25 Range/Units 14:48 04:50 WBC 20.1 H 9.1 D (3.6-11.0) Thou/mm3 Hgb 11.1 L 9.5 L (12.0-16.0) g/dL Hct 33.2 L 29.1 L (36.0-46.0) % Plt Count 419 311 D (140-440) Thou/mm3 BMP 05/04/25 05/05/25 14:48 04:50 Sodium 132 L 136 Potassium 4.0 4.4 Chloride 102 104 Carbon Dioxide 20.3 23.3 BUN 15 17 Creatinine 0.8 0.8 Glucose 155 H 109 H Calcium 9.4 8.6 Liver Function 05/04/25 05/05/25 Range/Units 14:48 04:50 Total Bilirubin 0.8 0.7 (0.3-1.2) mg/dL AST 25 18 (0-34) U/L ALT 18 13 (10-49) U/L Alkaline Phosphatase 112 79 D (46-116) U/L Albumin 4.4 3.4 D (3.4-4.8) gm/dL Urine 05/04/25 Range/Units 16:25 Urine Color Drk-Yellow A (Lt Yel-Yel) Urine Clarity Cloudy A (Clear/Hazy) Urine pH 6.0 (5.0-7.0) Ur Specific [place] 1.026 (1.001-1.035) Urine Protein 1+ A (Neg - Trace) Urine Glucose (UA) Negative (Negative) Quality Measures Quality Measures none Medications Home Medications and Allergies Home Medications ?Medication ?Instructions ?Recorded ?Confirmed ?Type amlodipine 10 mg tablet 10 mg PO DAILY 05/05/2511/22 History aspirin 81 mg chewable tablet 1 tab PO Q12HR 05/05/25 05/05/25 History celecoxib 200 mg capsule 200 mg PO Q12H PRN pain 11/2205/05/25 History losartan 100 mg tablet 100 mg PO DAILY 05/05/2511/22 History pregabalin 150 mg capsule 150 mg PO Q12H PRN pain 11/2205/05/25 History Allergies Allergy/AdvReac Type Severity Reaction Status Date / Time Penicillins Allergy Severe Hives Verified 05/04/25 13:48 Sulfa (Sulfonamide Allergy Severe Hives Verified 05/04/25 13:48 Antibiotics) Visit Medications Acetaminophen (Acetaminophen 325 Mg Tablet) 650 mg PO Q6H PRN PRN Reason: Fever >100.4 or pain 1-3 Stop: 06/03/25 20:59 Hydromorphone HCl (Hydromorphone Inj 2 Mg/Ml Vial) 0.5 mg IVP Q4HR PRN PRN Reason: pain 7-10 Stop: 05/09/25 21:18 Last Admin: 05/05/25 07:28 Dose: 0.5 mg Lactated Ringer's (Lactated Ringers) 1,000 mls @ 60 mls/hr IV .[id number] [facility] Stop: 06/03/25 21:13 Last Admin: 05/04/25 21:27 Dose: 60 mls/hr Ceftriaxone Sodium/Dextrose (Rocephin/D5w 1gm Iv Premix) 1 gm in 50 mls @ 100 mls/hr IV Q12HR [facility] Stop: 05/11/25 23:34 Last Admin: 05/05/25 09:06 Dose: 100 mls/hr Acetaminophen (Ofirmev Inj) 1,000 mg in 100 mls @ 250 mls/hr IV Q6HR [facility] Stop: 05/05/25 12:23 Last Admin: 05/05/25 05:04 Dose: 250 mls/hr Ondansetron HCl (Ondansetron Inj 2 Mg/Ml Inj 2 Ml) 4 mg IVP Q6HR PRN; Protocol PRN Reason: NAUSEA OR VOMITING Stop: 06/03/25 15:45 Last Admin: 05/05/25 09:07 Dose: 4 mg Pantoprazole Sodium (Pantoprazole Inj 40 Mg Vial) 40 mg IVP QDAY KIRAN Stop: 06/04/25 08:59 Last Admin: 05/05/25 09:06 Dose: 40 mg Discontinued Medications Benzocaine (Benzocaine 20% (Hurricaine) [place] 1 Dose) 0 dose TOP X1 ONE Stop: 05/04/25 21:12 Last Admin: 05/04/25 21:54 Dose: Not Given Hydromorphone HCl (Hydromorphone Inj 2 Mg/Ml Vial) 1 mg IVP X1 ONE Stop: 05/04/25 17:56 Last Admin: 05/04/25 18:03 Dose: 1 mg Hydromorphone HCl (Hydromorphone Inj 2 Mg/Ml Vial) 2 mg IVP X1 ONE Stop: 05/04/25 23:35 Last Admin: 05/04/25 23:49 Dose: 2 mg Cefazolin Sodium/Dextrose (Ancef Ivpb) 1 gm in 50 mls @ 100 mls/hr IV X1 ONE Stop: 05/04/25 16:10 Last Admin: 05/04/25 16:00 Dose: Not Given Metronidazole (Flagyl 500 Mg Iv) 500 mg in 100 mls @ 100 mls/hr IV X1 ONE Stop: 05/04/25 16:41 Last Infusion: 05/04/25 18:46 Dose: Infused Ceftriaxone Sodium/Dextrose (Rocephin/D5w 1gm Iv Premix) 1 gm in 50 mls @ 100 mls/hr IV X1 ONE Stop: 05/04/25 16:25 Last Infusion: 05/04/25 16:40 Dose: Infused Lactated Ringer's (Lactated Ringers) 1,000 mls @ 999 mls/hr IV .Q1H1M ONE Stop: 05/04/25 18:23 Last Infusion: 05/04/25 18:46 Dose: Infused Lactated Ringer's (Lactated Ringers) 1,000 mls @ 999 mls/hr IV .Q1H1M ONE Stop: 05/04/25 18:23 Last Admin: 05/04/25 17:42 Dose: Not Given Lactated Ringer's (Lactated Ringers) 500 mls @ 999 mls/hr IV .Q31M ONE Stop: 05/04/25 18:30 Last Infusion: 05/04/25 20:50 Dose: Infused Lactated Ringer's (Lactated Ringers) 1,000 mls @ 999 mls/hr IV .Q1H1M ONE Stop: 05/04/25 18:55 Last Infusion: 05/04/25 20:50 Dose: Infused Morphine Sulfate (Morphine Sulf Inj 4 Mg/Ml Vial) 2 mg IVP X1 ONE Stop: 05/04/25 14:34 Last Admin: 05/04/25 14:55 Dose: Not Given Morphine Sulfate (Morphine Sulf Inj 4 Mg/Ml Vial) 2 mg IM X1 ONE Stop: 05/04/25 14:45 Last Admin: 05/04/25 14:53 Dose: 2 mg Morphine Sulfate (Morphine Sulf Inj 4 Mg/Ml Vial) 2 mg IM X1 ONE Stop: 05/04/25 15:33 Last Admin: 05/04/25 16:01 Dose: Not Given Morphine Sulfate (Morphine Sulf Inj 4 Mg/Ml Vial) 2 mg IVP X1 ONE Stop: 05/04/25 15:46 Last Admin: 05/04/25 15:59 Dose: 2 mg Ondansetron HCl (Ondansetron Inj 2 Mg/Ml Inj 2 Ml) 4 mg IVP X1 ONE; Protocol Stop: 05/05/25 09:09 Pantoprazole Sodium (Pantoprazole Inj 40 Mg Vial) 40 mg IVP X1 ONE Stop: 05/05/25 02:42 Last Admin: 05/05/25 02:51 Dose: 40 mg Assessment & Plan Plan Patient is a 60-year-old female with a past medical history of hypertension, and and possible arthroplasty of the left knee about 1 week ago who presented to ED via private vehicle with a chief complaint of severe abdominal pain, 10 out of 10. Patient admitted for psuedo large bowel obstruction vs toxic colitis. #Large bowel obstruction #Ileus vs acute colonic pseudo-obstruction (Olar's) #s/p L knee replacement #Hiatial hernia DDX: LBO vs ileus vs toxic colitis vs Olar syndrome vs bowel ischemia Patient presents for 1 week of abdominal pain progressively worsening for the past 2 to 3 days. Characterizes pain as dull, diffusely crampy pain associated with emesis, fever, chills, decreased flatulence and bloating. On physical examination abdomen is mildly distended to palpation and low bowel sounds throughout the quadrants. On admission patient was febrile with temp 100.7 and lactic acid 2.2 which improve with LR IVF, antipyretic and ceftriaxone.Given clinical presentation diffuse abdominal pain, obstipation, bloatedness/gassiness and low bowel sounds and recent hospitalization prescription on norco and celecoxib s/p knee replacement patient likely has ileus vs Olar due slow bowel motility from opiods and hx of constipation exacerbation. Abdominal/pelvis/CT showed extensive distention of the colon from the cecum through the transverse colon slight mural thickening and very mild diffuse pericolonic fat stranding throughout the descending colon. Tranverse colon 8.6 cm. KUB -distended large bowel loops - Bowel rest, keep n.p.o. - Unable to insert NG tube twice due to hiatal hernia, patient has high risk of aspiration-> start single constrast gastrographin enema - Continue rectal tube qshift - Continue Protonix 40 mg and Zofran 4 mg - Follow up with Surgery recommendation #Lactic acidosis #UTI #Asymptomatic Hyponatremia # Primary hypertension -Continue management per primary team Patient seen and assessed under supervision of attending physician . Jaja Bearden MD PGY-1, Internal Medicine Please note: this document was transcribed using voice recognition technology; minor inaccuracies may be present. Attending Provider Attestation/Addendum Patient evaluated and personally examined Went over the imaging studies laboratory data Patient basically has a stool impaction in the left side of the colon with dilatation of the ascending colon and the transverse colon No mass seen on the CT scan of the abdomen and pelvis imaging Gastrografin barium enema recommended shows really no clear obstruction and the contrast is flowing through all the way up to the ascending colon Recommend GoLytely either p.o. by NGT NGT has already been attempted to be placed twice I will attempt to place it if the patient would allow it And then gentle GoLytely at 100 cc an hour It is a narcotic induced stool impaction causing the above clinical picture No indication for surgical intervention at this time Thank you for the opportunity to participate in the care of this patient
--- NOTE | 2025-05-05 11:39 | XR_ITS ---
EXAM: Single contrast Gastrografin enema INDICATION: Colonic pseudoobstruction DATE: 05/05/2025, 3:16 p.m. Fluoroscopy time: 1.8 minutes Dose: 210.56 mGy PROCEDURE: Single contrast barium enema performed via rectal tube. Contrast opacifies a normal-appearing sigmoid, ascending and transverse colon. Distal half of the ascending colon also opacified normally. Contrast could not be advanced to the cecum or small bowel. Patient requested procedure be stopped at this point.. Contrast was then drained. No immediate complications IMPRESSION: Single contrast therapeutic Gastrografin enema as above.
--- NOTE | 2025-05-05 12:09 | PC.PT ---
Patient was approached for PT eval at 11:30. Patient just had the NG tube inserted and was feeling very nauseous. Patient began vomiting while PT was in room. Patient requested to be seen tomorrow. RN recommended patient be seen tomorrow as well. Will hold PT eval today and try again tomorrow 05/06/25. RN made aware.
--- NOTE | 2025-05-05 12:10 | XR_ITS ---
CLINICAL INDICATION: ng tube repositioned TECHNIQUE: XR chest 1V post procedure COMPARISON: Chest radiograph of earlier the same day. CT abdomen and pelvis 05/04/2025 FINDINGS: Interval repositioning of the nasogastric tube but without significant interval change, still projecting in the region of the hiatal hernia. Redemonstration of subsegmental atelectasis/scarring at the left lung base. Sizable pleural effusions. Mildly enlarged cardiomediastinal silhouette is reidentified. Multifocal degenerative changes with otherwise no evidence for recent fracture or aggressive lesion. IMPRESSION: Interval repositioning of the nasogastric tube but without significant interval change, still projecting in the region of the hiatal hernia. - This report was generated utilizing speech recognition software. -CLINICAL INDICATION: ng tube repositioned TECHNIQUE: XR chest 1V post procedure COMPARISON: None. FINDINGS: The cardiomediastinal silhouette is within normal limits. No airspace opacities suggestive of pneumonia. No mass detected. No pleural effusion or pneumothorax. No acute osseous abnormality detected. IMPRESSION: No radiographic evidence for acute cardiopulmonary abnormality. - This report was generated utilizing speech recognition software. -
--- NOTE | 2025-05-05 12:28 | PD.SURCONS ---
HPI Consult details Consult date: 05/05/25 Reason for consultation narrative: This patient is a 60-year-old female who was seen in consultation because of of dilated large bowel and abdominal pain History of present illness: History of present illness revealed that the patient underwent total knee replacement on week ago in [place]. In the past 2 or 3 days she started having increasing abdominal distention and pain. Yesterday she came in with a severe abdominal pain associated with vomiting. She has not had any bowel functions in 1 week since surgery. X-ray showed dilated colon and a surgical consultation was obtained. Patient's past medical history consist of hypertension Past Medical History Past Medical History CARDIAC: Positive Hypertension; Negative Congestive Heart Failure RESPIRATORY: Negative Chronic Obstructive Pulmonary Disease (COPD) GASTROINTESTINAL: Positive Gastroesophageal Reflux Disease; Negative Obstructive Bowel GENITOURINARY: Negative Genitourinary Disorders or Renal Disease MUSCULOSKELETAL: Positive Musculoskeletal Disorders and Arthritis (osteoarthritis bilateral knees) ENDOCRINE: Positive Endocrine Disorders (pre diabetic); Negative Diabetes Mellitus Type 1 or Diabetes Mellitus Type 2 OTHER HISTORY: Positive Falls; Negative Blood Transfusions or Anesthesia Reactions Surgical History SURGICAL: Positive Knee Sx (L TOTAL KNEE REPLACEMENT- 04/28/25); Negative Abdominal Surgery OTHER SURGICAL HX: right ankle surgery due to fracture, right hand surgery due to fracture. Social History SMOKING STATUS: Never smoker SECOND HAND EXPOSURE: No Meds Home Medications and Allergies Home Medications ?Medication ?Instructions ?Recorded ?Confirmed ?Type amlodipine 10 mg tablet 10 mg PO DAILY 05/05/25 05/05/25 History aspirin 81 mg chewable tablet 1 tab PO Q12HR 05/05/25 05/05/25 History celecoxib 200 mg capsule 200 mg PO Q12H PRN pain 05/05/25 05/05/25 History losartan 100 mg tablet 100 mg PO DAILY 05/05/25 05/05/25 History pregabalin 150 mg capsule 150 mg PO Q12H PRN pain 05/05/25 05/05/25 History Allergies Allergy/AdvReac Type Severity Reaction Status Date / Time Penicillins Allergy Severe Hives Verified 05/04/25 13:48 Sulfa (Sulfonamide Allergy Severe Hives Verified 05/04/25 13:48 Antibiotics) Exam Vital Signs Temp Pulse Resp BP Pulse Ox O2 Del Method 97.5 F 95 18 102/70 93 L Room Air 05/05/25 07:50 05/05/25 11:07 05/05/25 11:07 05/05/25 07:50 05/05/25 07:50 05/05/25 07:50 Narrative Exam Physical examination revealed 10 built female who is 5 feet 4 inches tall weighing 174 pounds with BMI of 29.9. Her vital signs showed slight tachycardia but otherwise stable Constitutional Constitutional: moderate distress Routine Abdominal Exam Comments: Examination of the abdomen showed no significant distention or tenderness. Patient seems to be mildly distended and palpation does not reveal any signs of peritoneal irritation. Bowel sounds are hypoactive Routine Rectal Exam Comments: Deferred Routine Exam Comments: Deferred Routine Extremities Exam Comments: Dressing over the left knee from the surgery recently Results Results: Laboratory Laboratory Narrative: Laboratory results showed normal WBC even though it was 20,000 when she was admitted last night. Her lactic acid is slightly elevated. Results: Imaging Imaging narrative: X-rays of the abdomen showed dilated colon mostly in the cecum ascending colon and transverse colon. There is no dilatation of the left colon. CT scan showed a dilatation of about 8 cm in the ascending colon. There is no free air. But there is large amounts of stool. Assessment & Plan Additional Assessment Additional comments: Impression: Large bowel dilatation probably due to narcotic induced. The patient's daughter told me that she had a colonoscopy 3 or 4 years ago and it was negative. It is very unlikely that she would have developed obstructing colonic lesion in the short interval time. However adynamic ileus is a strong possibility and will require decompression of the colon. This can be done by GoLytely if the patient tolerates the oral fluids. If not she can get Gastrografin lower GI to empty the stool and the gas. Obviously colonoscopy will be the ideal to decompress this colon. At this time there is no surgical indication in this patient for intervention. Plan Plan: I suggest Gastrografin lower GI and then hopefully colonoscopy. If she has adynamic ileus and neostigmine injection will help also but we need to rule out mechanical bowel obstruction prior to administering the medication
--- NOTE | 2025-05-05 14:11 | ESPR_ITS ---
<Statement entered by Antonio Vu MD - 05/05/25 21:46> Patient seen and examined at bedside. I discussed and supervised with the supply chain intern physician who took care of this patient. I personally saw and examined the patient. I agree with most of the assessment and plan. Plan of care discussed with attending Dr. Calloway. Antonio Vu MD PGY-2 Documentation for date of: 05/05/25 Subjective Subjective Interval history: NG tube placement was attempted twice but was unsuccessful due to coiling within the patient's large hiatal hernia. GI was consulted for assistance with NG tube placement, which they agreed. If NG tube is successful, will administer GoLytely and possibly colonoscopy. Based on General Surgery recommendations, a single- contrast barium enema with gastrografin was ordered to remove stool and gas, and to rule out mechanical bowel obstruction. If patient has adynamic ileus without mechanical bowel obstruction, neostigmine injection will be considered. Per nurrsing report, prior to barium enema, the patient had two small bowel movement, with mild improvement in abdominal discomfort. This morning patient had significant abdominal pain in all 4 quadrants. After barium enema, she no longer has any abdominal pain. Ordered KUB. No Overnight events. Labs reviewed and patient examined at the bedside. Denies chest pain, palpation, SOB, fevers or chills. Exam Vital Signs Temp Pulse Resp BP Pulse Ox O2 Del Method 97.5 F 95 18 102/70 93 L Room Air 05/05/25 07:50 05/05/25 11:07 05/05/25 11:07 05/05/25 07:50 05/05/25 07:50 05/05/25 07:50 Narrative Exam General: In Acute distress, AAO x3 Eye: Normal conjunctiva, no scleral icterus HENT: Normocephalic, atraumatic, hearing intact to conversation at normal volume, moist oral mucosa Neck: Supple, non-tender, no JVD, no lymphadenopathy Lungs: Non-labored respirations, symmetric chest rise, Clear to auscultate bilaterally, No wheezing, rhonchi, crackles Heart: Peripheral pulses intact bilaterally, Regular Rate and Rhythm. Abdomen: No palpable masses, Distended abdomen, After barium enema, she no longer has any abdominal pain. Musculoskeletal: Normal range of motion and strength, No cyanosis or edema, No visible joint swelling Skin: Multiple echymosis in left leg due to left knee surgery 1 week ago. Psychiatric: Cooperative, appropriate mood and affect, Awake and alert, A gitated. Neuro: Cranial nerves II-XII grossly intact. Strength 5/5 throughout. Sensations intact to light touch. Objective Labs 05/05/25 04:50 05/05/25 04:50 Labs: Laboratory Results - last 24 hr 05/04/25 05/04/25 05/04/25 14:48 16:00 16:25 WBC 20.1 H RBC 4.06 Hgb 11.1 L Hct 33.2 L MCV 82 MCH 27.3 MCHC 33.4 RDW Std Deviation 42.4 Plt Count 419 Neut % (Auto) 77 Lymph % (Auto) 12 [place] % (Auto) 9 Eos % (Auto) 1 Baso % (Auto) 1 Neut # (Auto) 15.5 H Lymph # (Auto) 2.4 [place] # (Auto) 1.8 H Eos # (Auto) 0.2 Baso # (Auto) 0.1 Immature Gran # (Auto) 0.10 H Absolute Nucleated RBC 0.00 Immature Gran % 1 H Nucleated RBC % 0 PT 10.5 INR 1.0 APTT 24.6 Sodium 132 L Potassium 4.0 Chloride 102 Carbon Dioxide 20.3 Anion Gap 10 BUN 15 Creatinine 0.8 Estim Creat Clear Calc Not Performed. eGFR > 60 BUN/Creatinine Ratio 19 Glucose 155 H Calculated Osmolality 268 L Lactic Acid 2.2 H Calcium 9.4 Corrected Calcium 9.4 Phosphorus Magnesium 2.2 Total Bilirubin 0.8 AST 25 ALT 18 Alkaline Phosphatase 112 Total Protein 6.7 Albumin 4.4 Globulin 2.3 Albumin/Globulin Ratio 1.9 Lipase 30 TSH Ur Collection Type Clean Catch Urine Color Drk-Yellow A Urine Clarity Cloudy A Urine pH 6.0 Ur Specific [place] 1.026 Urine Protein 1+ A Urine Glucose (UA) Negative Urine Ketones Trace Urine Blood Negative Urine Nitrite Negative Urine Bilirubin 1+ A Urine Urobilinogen (Auto) 6.0 Ur Leukocyte Esterase Positive Urine RBC 13 H Urine WBC 86 H Ur Squamous Epith Cells 10 H Urine Bacteria 4+ A Hyaline Casts 1 Ur Culture Indicated? Yes Urine HCG, Qual Negative Urine Opiates Screen Positive A Urine Fentanyl Screen Negative Ur Barbiturates Screen Negative U Amphetamin/Meth Scrn Negative U Benzodiazepines Scrn Negative U Cocaine Metab Screen Negative U Marijuana (THC) Screen Negative Urine Alcohol Negative 05/04/25 05/05/25 19:52 04:50 WBC 9.1 D RBC 3.53 L Hgb 9.5 L Hct 29.1 L MCV 82 MCH 26.9 MCHC 32.6 RDW Std Deviation 43.7 Plt Count 311 D Neut % (Auto) 67 Lymph % (Auto) 18 [place] % (Auto) 13 H Eos % (Auto) 1 Baso % (Auto) 1 Neut # (Auto) 6.1 Lymph # (Auto) 1.6 [place] # (Auto) 1.2 H Eos # (Auto) 0.1 Baso # (Auto) 0.1 Immature Gran # (Auto) 0.04 H Absolute Nucleated RBC 0.00 Immature Gran % 0 Nucleated RBC % 0 PT INR APTT Sodium 136 Potassium 4.4 Chloride 104 Carbon Dioxide 23.3 Anion Gap 9 BUN 17 Creatinine 0.8 Estim Creat Clear Calc 76.0 eGFR > 60 BUN/Creatinine Ratio 21 H Glucose 109 H Calculated Osmolality 274 L Lactic Acid 2.1 H Calcium 8.6 Corrected Calcium 9.1 Phosphorus 4.5 Magnesium 2.1 Total Bilirubin 0.7 AST 18 ALT 13 Alkaline Phosphatase 79 D Total Protein 5.1 L Albumin 3.4 D Globulin 1.7 L Albumin/Globulin Ratio 2.0 Lipase TSH 1.75 Ur Collection Type Urine Color Urine Clarity Urine pH Ur Specific [place] Urine Protein Urine Glucose (UA) Urine Ketones Urine Blood Urine Nitrite Urine Bilirubin Urine Urobilinogen (Auto) Ur Leukocyte Esterase Urine RBC Urine WBC Ur Squamous Epith Cells Urine Bacteria Hyaline Casts Ur Culture Indicated? Urine HCG, Qual Urine Opiates Screen Urine Fentanyl Screen Ur Barbiturates Screen U Amphetamin/Meth Scrn U Benzodiazepines Scrn U Cocaine Metab Screen U Marijuana (THC) Screen Urine Alcohol Quality Measures Quality Measures none Assessment & Plan Assessment Current Active Medications: Generic Name Dose Route Start Last Admin Trade Name Freq PRN Reason Stop Dose Admin Acetaminophen 650 mg 05/04/25 21:00 Acetaminophen 325 Mg Tablet PO 06/03/25 20:59 Q6H PRN Fever >100.4 or pain 1-3 Hydromorphone HCl 0.5 mg 05/04/25 21:19 05/05/25 07:28 Hydromorphone Inj 2 Mg/Ml Vial IVP 05/09/25 21:18 0.5 mg Q4HR PRN Administration pain 7-10 Lactated Ringer's 1,000 mls @ 60 mls/hr 05/04/25 21:14 05/04/25 21:27 Lactated Ringers IV 06/03/25 21:13 60 mls/hr .[id number] KIRAN Administration Ceftriaxone Sodium/Dextrose 1 gm in 50 mls @ 100 mls/hr 05/04/25 23:35 05/05/25 09:06 Rocephin/D5w 1gm Iv Premix IV 05/11/25 23:34 100 mls/hr Q12HR KIRAN Administration Ondansetron HCl 4 mg 05/04/25 15:46 05/05/25 09:07 Ondansetron Inj 2 Mg/Ml Inj 2 Ml IVP 06/03/25 15:45 4 mg Q6HR PRN Administration NAUSEA OR VOMITING Protocol Pantoprazole Sodium 40 mg 05/05/25 09:00 05/05/25 09:06 Pantoprazole Inj 40 Mg Vial IVP 06/04/25 08:59 40 mg QDAY KIRAN Administration Plan Patient is a 60-year-old female with a past medical history of hypertension and and possible arthroplasty of the left knee about 1 week ago who presented to the emergency room via private vehicle with a chief complaint of severe abdominal pain, 10 out of 10. Patient admitted for psuedo large bowel obstruction vs toxic colitis. #Psuedo large bowel obstruction vs toxic colitis #Lactic acidosis -Recent L knee surgery, on opiates, has no BM in one week. Worsening abdominal pain. lactic acid 2.1 WBC 20.1. Imaging KUB -distended large bowel loops, Tranverse colon 8.6 cm CTAP: Luis syndrome or potentially toxic colitis -NG tube placement was attempted twice but was unsuccessful due to coiling within the patient's large hiatal hernia. GI was consulted for assistance with NG tube placement, which they agreed. -Based on General Surgery recommendations, a single-contrast barium enema with gastrografin was ordered to remove stool and gas, and to rule out mechanical bowel obstruction. -After barium enema, she no longer has any abdominal pain. Ordered KUB. Plan: -GI consulted (Dr. Alonzo) -Rectal tube placed -IV tylenol pain control - limit to 4g/day -Dilaudid pain control -Ceftriaxone 1g IV Q12HR -IV LR 60ml/hr -NPO -If NG tube is successful, will administer GoLytely and possibly colonoscopy. -If patient has adynamic ileus without mechanical bowel obstruction, neostigmine injection will be considered. -Ordered KUB. #UTI -Urinary symptoms, Urine cola colored, +1 protein RBC 13 WBC 86 Sq epithelial 10H Bacteria +4, not a clean catch, but also lots of blood and dark color. -Urince Cx: Positive for GNR Plan: -Ceftriaxone 1g IV Q12HR #Asymptomatic Hyponatremia Na 132 Could be dilutional due to mass fluids given in ED. Plan: -CTM -Consider fluid restrictions following GI procedure and resolution of lactic acidosis #Hx of HTN Can consider restarting home meds of amlodipine or losartan pending med rec Health Maintenance: Code status: Full DVT prophylaxis: SCDs pending GI procedure GI prophylaxis: protonix Diet: NPO pending procedure [place]: None Lines: PIV Supplemental O2: None Disposition: Med surg Assessment and plan discussed with my attending physician Dr. Calloway and Dr. Vu (PGY-2) Dr. Veras (PGY-1) - Internal medicine resident Attending Provider Attestation/Addendum I have discussed and was present for the essential components of the history, physical examination, diagnosis, and treatment plan with the resident. I agree with the patient's care as documented by the resident and amended herein by me. Tristan Calloway DO. Although this document has been carefully reviewed, there may still be some phonetic and other typographical errors. These errors are purely grammatical due to imperfections in the software program and should not be construed in any way to compromise the substance of the patient's medical care during this visit.
[2025-05-05] MEDS: RINGERS LACTATED 1000 ML 1,000 ML 60 ML IV (16:39)
--- NOTE | 2025-05-05 18:01 | XR_ITS ---
Examination: Abdomen AP single view Technique: AP portable supine abdomen, single view Exam date and time: May 05, 2025, 10:20 p.m. INDICATION: Status post barium enema for colonic obstruction. FINDINGS: Prominent colonic distention No free air The osseous structures are intact IMPRESSION: Prominent colonic ileus
[2025-05-05] MEDS: NA SU/NAHCO3/KC/PEG (Golytely) 4,000 ML BTL 4000 ML PO (21:09)
[2025-05-06] VITALS (8 sets, daily range): BP systolic 98–140; BP diastolic 62–92; PULSE 59–105; RESP 14–96; TEMP 36.3–36.7; O2SAT 93–95
[2025-05-06] MEDS: HYDROmorphone INJ 2 MG/ML VIAL 0.5 MG IVP ×2 (01:36→21:17)
[2025-05-06] MEDS: RINGERS LACTATED 1000 ML 1,000 ML 60 ML IV (04:58)
[2025-05-06] MEDS: ACETAMINOPHEN 325 MG TABLET 650 MG PO ×2 (04:59→14:47)
[2025-05-06 06:28] LABS: Basophils # (Auto) 0.0 Thou/mm3 (0.0-0.2); Basophils % (Auto) 0 % (0-2.5); Eosinophils # (Auto) 0.1 Thou/mm3 (0.0-0.5); Eosinophils % (Auto) 1 % (0-10); Hematocrit 24.9 % (36.0-46.0); Immature Granulocytes Auto 0.04 Thou/mm3 (0.00-0.00); Lymphocytes # (Auto) 1.5 Thou/mm3 (1.0-4.8); Lymphocytes % (Auto) 16 % (10-50); Mean Corpuscular HGB Conc 33.7 g/dl (31.0-37.0); Mean Corpuscular Hemoglobin 27.0 pg (25.0-35.0); Mean Corpuscular Volume 80 fL (80-100); Monocytes # (Auto) 1.3 Thou/mm3 (0.0-0.8); Monocytes % (Auto) 13 % (0-12); Neutrophils # (Auto) 6.6 Thou/mm3 (1.8-7.7); Neutrophils % (Auto) 69 % (37-80); Nucleated Red Blood Cell # 0.00 Thou/mm3 (0.00-0.00); Nucleated Red Blood Cell % 0 /100 WBC (0); Platelet Count 313 Thou/mm3 (140-440); RDW Standard Deviation 43.8 fL (36.4-46.3); Red Blood Count 3.11 Miln/mm3 (4.00-5.20); White Blood Count 9.5 Thou/mm3 (3.6-11.0)
[2025-05-06 06:43] LABS: Hemoglobin 8.4 g/dL (12.0-16.0)
[2025-05-06 06:59] LABS: Alanine Aminotransferase 13 U/L (10-49); Albumin, Serum 3.2 gm/dL (3.4-4.8); Albumin/Globulin Ratio 1.8 (1.2-2.2); Alkaline Phosphatase 71 U/L (46-116); Anion Gap 11 (7-16); Aspartate Amino Transferase 24 U/L (0-34); BUN/Creatinine Ratio 27 Ratio (12-20); Bilirubin,Total 0.5 mg/dL (0.3-1.2); Blood Urea Nitrogen 16 mg/dL (9-23); Calcium 8.1 mg/dL (8.3-10.6); Calcium (Corrected) 8.7 mg/dL (8.5-10.1); Carbon Dioxide 23.1 mMol/L (20.0-31.0); Chloride 105 mMol/L (98-107); Creatinine (Component) 0.6 mg/dL (0.6-1.3); Estimated Creatinine Clearance 101.4 mL/min (>60); Globulin 1.8 gm/dL (2.3-3.5); Glucose 93 mg/dL (74-106); Magnesium 2.0 mg/dL (1.6-2.6); Osmolality,Calculated 278 (275-295); Phosphorous 2.5 mg/dL (2.4-5.1); Potassium 3.2 mMol/L (3.4-5.1); Sodium 139 mMol/L (136-145); Total Protein 5.0 gm/dL (5.7-8.2); eGFR > 60 See Note
[2025-05-06] MEDS: POTASSIUM CHL 10 mEq IVPB 10 MEQ/100 ML BAG 100 MEQ IV ×4 (07:45→11:37)
--- NOTE | 2025-05-06 07:59 | XR_ITS ---
Examination: Abdomen AP single view Technique: AP portable supine abdomen, single view (2 images total) Exam date and time: 05/06/2025 at 8:33 a.m. INDICATION: Abdominal pain, history of constipation and therapeutic enema COMPARISON: Abdominal radiographs 05/05/2025 at 10:25 p.m. FINDINGS: The previously visualized contrast within the sigmoid colon and rectum has cleared. There is persistent prominent diffuse gaseous distention of the redundant colon, again most severely involving the cecum, measuring 11.4 cm in caliber. There is more pronounced gaseous distention of the left hemicolon since yesterday's radiographs. There is persistent mild gaseous distention of multiple small bowel loops in the mid to lower abdomen eccentric to the left, showing improvement in the interim. No free air is detected. IMPRESSION: Persistent prominent gaseous distention of redundant colon with more gas in the left hemicolon compared to yesterday's exam. Mildly less pronounced gaseous distention of small bowel in the lower abdomen/left lower quadrant. No free air detected.
[2025-05-06] MEDS: PIPER/TAZO 3.375 GM PREMIX 3.375 G/50 ML BAG IV ×3 (08:57→21:09)
--- NOTE | 2025-05-06 09:24 | ESPR_ITS ---
<Statement entered by Patricia Boucher MD - 05/06/25 17:11> Patient was seen and examined at bedside. I agree on the assessment and plan on this note as documented by resident Иван Veras DO PGY1. 60-year-old female with past medical history as below admitted for pseudoobstruction, patient has had about 20 bowel movement since yesterday, pain and symptoms have improved significantly after barium enema. Patient currently on GoLytely prep, will be scheduled by gastroenterology for colonoscopy for decompression once clear. Gastroenterology is following, will continue to monitor patient. Case discussed with attending Dr. Bk Gerard MD PGY-2 Documentation for date of: 05/06/25 Subjective Subjective Interval history: Patient started taking GoLytely. NG tube was not placed. Plan for colonoscopy, likely tomorrow. Currently on clear liquid diet. Yesterday she had more than 8 bowel movement. Her abdominal pain is still there but no longer severe. Urine culture was positive for Klebsiella oxytoca, ESBL positive. Changed her antibiotics from IV ceftriaxone to IV Zosyn 3.375 g every 6 hours. Will continue to monitor. Repeat Abdominal XR (05/06/2025) this morning showed distended abdomen with gas No Overnight events. Labs reviewed and patient examined at the bedside. Denies chest pain, palpation, SOB, N/V, fevers or chills. Exam Vital Signs Temp Pulse Resp BP Pulse Ox O2 Del Method 97.9 F 75 18 119/85 H 94 L Room Air 05/06/25 08:00 05/06/25 08:00 05/06/25 08:00 05/06/25 08:00 05/06/25 08:00 05/06/25 08:00 Narrative Exam General: Mild distress, AAO x3 Eye: Normal conjunctiva, no scleral icterus HENT: Normocephalic, atraumatic, hearing intact to conversation at normal volume, moist oral mucosa Neck: Supple, non-tender, no JVD, no lymphadenopathy Lungs: Non-labored respirations, symmetric chest rise, Clear to auscultate bilaterally, No wheezing, rhonchi, crackles Heart: Peripheral pulses intact bilaterally, Regular Rate and Rhythm. Abdomen: No palpable masses, Distended abdomen, Still has abdominal pain. Musculoskeletal: Normal range of motion and strength, No cyanosis or edema, No visible joint swelling Skin: Multiple echymosis in left leg due to left knee surgery 1 week ago. Psychiatric: Cooperative, appropriate mood and affect, Awake and alert, A gitated. Neuro: Cranial nerves II-XII grossly intact. Strength 5/5 throughout. Sensations intact to light touch. Objective Labs 05/06/25 05:08 05/06/25 05:08 Labs: Laboratory Results - last 24 hr 05/06/25 05:08 WBC 9.5 RBC 3.11 L Hgb 8.4 L Hct 24.9 L MCV 80 MCH 27.0 MCHC 33.7 RDW Std Deviation 43.8 Plt Count 313 Neut % (Auto) 69 Lymph % (Auto) 16 [place] % (Auto) 13 H Eos % (Auto) 1 Baso % (Auto) 0 Neut # (Auto) 6.6 Lymph # (Auto) 1.5 [place] # (Auto) 1.3 H Eos # (Auto) 0.1 Baso # (Auto) 0.0 Immature Gran # (Auto) 0.04 H Absolute Nucleated RBC 0.00 Immature Gran % 0 Nucleated RBC % 0 Sodium 139 Potassium 3.2 L D Chloride 105 Carbon Dioxide 23.1 Anion Gap 11 BUN 16 Creatinine 0.6 Estim Creat Clear Calc 101.4 eGFR > 60 BUN/Creatinine Ratio 27 H Glucose 93 Calculated Osmolality 278 Calcium 8.1 L Corrected Calcium 8.7 Phosphorus 2.5 Magnesium 2.0 Total Bilirubin 0.5 AST 24 ALT 13 Alkaline Phosphatase 71 Total Protein 5.0 L Albumin 3.2 L Globulin 1.8 L Albumin/Globulin Ratio 1.8 Quality Measures Quality Measures none Assessment & Plan Assessment Current Active Medications: Generic Name Dose Route Start Last Admin Trade Name Sohailq PRN Reason Stop Dose Admin Acetaminophen 650 mg 05/04/25 21:00 05/06/25 04:59 Acetaminophen 325 Mg Tablet PO 06/03/25 20:59 650 mg Q6H PRN Administration Fever >100.4 or pain 1-3 Hydromorphone HCl 0.5 mg 05/04/25 21:19 05/06/25 01:36 Hydromorphone Inj 2 Mg/Ml Vial IVP 05/09/25 21:18 0.5 mg Q4HR PRN Administration pain 7-10 Lactated Ringer's 1,000 mls @ 60 mls/hr 05/04/25 21:14 05/06/25 04:58 Lactated Ringers IV 06/03/25 21:13 60 mls/hr .[id number] KIRAN Administration Potassium Chloride 10 meq in 100 mls @ 100 mls/hr 05/06/25 07:27 05/06/25 08:56 Kcl Ivpb IV 05/06/25 11:26 100 mls/hr Q1H KIRAN Administration Piperacillin/Tazobactam/Dextrose 3.375 g in 50 mls @ 12.5 mls/hr 05/06/25 08:03 05/06/25 08:57 Zosyn IV 05/13/25 08:02 12.5 mls/hr Q8HR KIRAN Administration Protocol Ondansetron HCl 4 mg 05/04/25 15:46 05/05/25 09:07 Ondansetron Inj 2 Mg/Ml Inj 2 Ml IVP 06/03/25 15:45 4 mg Q6HR PRN Administration NAUSEA OR VOMITING Protocol Pantoprazole Sodium 40 mg 05/05/25 09:00 05/06/25 08:56 Pantoprazole Inj 40 Mg Vial IVP 06/04/25 08:59 40 mg QDAY KIRAN Administration Plan Patient is a 60-year-old female with a past medical history of hypertension and and possible arthroplasty of the left knee about 1 week ago who presented to the emergency room via private vehicle with a chief complaint of severe abdominal pain, 10 out of 10. Patient admitted for psuedo large bowel obstruction vs toxic colitis. #Psuedo large bowel obstruction vs toxic colitis #Lactic acidosis -Recent L knee surgery, on opiates, has no BM in one week. Worsening abdominal pain. lactic acid 2.1 WBC 20.1. -Abd XR (05/04/2025): Distended abdomen. The proximal transverse colon is distended to 8.6 cm in caliber. Nonspecific bowel findings. Findings could represent constipation and ileus. -CT abd/pelvis (05/04/2025): Extensive distention of the colon, most severely the ascending colon, with gas-liquid and fecal matter. The cecum is dilated up to 8.6 cm in caliber. The mid transverse colon measures 6.1 cm in caliber, and the proximal descending colon measures approximately 4 cm in caliber. No evidence for an obstructing mass. 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 No evidence for pneumatosis coli, portal venous gas, pneumoperitoneum or ascites. Positive for Hiatal hernia without acute complication -NG tube placement was attempted twice but was unsuccessful due to coiling within the patient's large hiatal hernia. GI was consulted for assistance with NG tube placement, which they agreed. -05/05: Based on General Surgery recommendations, a single-contrast barium enema with gastrografin was ordered to remove stool and gas, and to rule out mechanical bowel obstruction. -After barium enema, abdominal pain has been reduced -2nd Abd XR (05/05/2025): Progressive colonic distention with with gas and large amount of fecal matter. Cecum 11.2cm in caliber, Proximal transverse colon 9cm in caliber. No evidence for pneumatosis or pneumoperitoneum. -3rd Abd XR (05/05/2025) After Barium enema: Prominent colonic distention No free air, Prominent colonic ileus -4th Abd XR (05/06/2025) After Barium enema: Persistent prominent gaseous distention of redundant colon, most severely involving the cecum, measuring 11.4 cm in caliber. There is more pronounced gaseous distention of the left hemicolon, No free air is detected. Plan: -IV tylenol pain control - limit to 4g/day -Dilaudid pain control -IV LR 60ml/hr -If patient has adynamic ileus without mechanical bowel obstruction, neostigmine injection will be considered. -Consulted GI, Dr. Alonzo, appreciate recommendations -Consulted Surgery, Dr. Lincoln, appreciate recommendations -Consulted Orthopedics, Dr. Hendricks, appreciate recommendations -Currently on GoLytely. Planned for colonoscopy likely tomorrow. Currently on clear liquid diet. #UTI -Urinary symptoms, Urine cola colored, +1 protein RBC 13 WBC 86 Sq epithelial 10H Bacteria +4, not a clean catch, but also lots of blood and dark color. -Urine culture was positive for Klebsiella oxytoca, ESBL positive. Plan: -Changed her antibiotics to IV Zosyn 3.375 g every 6 hours (05/06-) -Discontinued IV Ceftriaxone (05/04-05/06) -Will continue to monitor. #Asymptomatic Hyponatremia Na 132 Could be dilutional due to mass fluids given in ED. Plan: -CTM -Consider fluid restrictions following GI procedure and resolution of lactic acidosis #Hx of HTN Can consider restarting home meds of amlodipine or losartan pending med rec Health Maintenance: Code status: Full DVT prophylaxis: SCDs pending GI procedure GI prophylaxis: protonix Diet: Clear liquid diet Funez: None Lines: PIV Supplemental O2: None Disposition: Med surg Assessment and plan discussed with my attending physician Dr. Calloway and Dr. Boucher (PGY-2) Dr. Veras (PGY-1) - Internal medicine resident Attending Provider Attestation/Addendum I have discussed and was present for the essential components of the history, physical examination, diagnosis, and treatment plan with the resident. I agree with the patient's care as documented by the resident and amended herein by me. Tristan Calloway DO. Although this document has been carefully reviewed, there may still be some phonetic and other typographical errors. These errors are purely grammatical due to imperfections in the software program and should not be construed in any way to compromise the substance of the patient's medical care during this visit.
[2025-05-06] MEDS: SIMETHICONE 80 MG CHEW PO (10:24)
--- NOTE | 2025-05-06 13:24 | PC.SS ---
Late note 05-05-25: SS met with patient regarding her d/c plan. Pt is alert/oriented. Pt was admitted for acute Colinic Pseudo-Obstruction. Pt confirmed demographic and contact information is correct on facesheet. Pt resides with son. Pt ambulates independently without assistance or DME. Pt is ok with all ADLs. Patient?s pharmacy of choice is [facility] in [place]. Pt named her dtr, Laurel Long medical decision maker if she is unable. Patient?s choice is to return home upon d/c. Pt does not have an advance directive, SS offered, and pt declined. Dtr will provide transportation home. D/C plan: Return home Next of Kin: Laurel Long, daughter, phone# [phone] PCP: Dr. Adilson Alcantara from [facility] in [place] Address: Correct on facesheet
--- NOTE | 2025-05-06 14:16 | PC.PT ---
Patient is safe to ambulate to the bathroom and in the halls with a FWW and 1 staff assist. RN made aware.
[2025-05-06] MEDS: NA SU/NAHCO3/KC/PEG (Golytely) 4,000 ML BTL 4000 ML PO (16:11)
--- NOTE | 2025-05-06 19:52 | PD.IMPROG ---
Documentation for date of: 05/06/25 Subjective Subjective Interval history: Patient having good results with the GoLytely not clear Start second gallon of GoLytely Exam Vital Signs Temp Pulse Resp BP Pulse Ox O2 Del Method 97.6 F 92 16 133/92 H 93 L Room Air 05/06/25 16:00 05/06/25 16:00 05/06/25 16:00 05/06/25 16:00 05/06/25 16:00 05/06/25 16:00 Objective Labs 05/06/25 05:08 05/06/25 05:08 Labs: Laboratory Results - last 24 hr 05/06/25 05:08 WBC 9.5 RBC 3.11 L Hgb 8.4 L Hct 24.9 L MCV 80 MCH 27.0 MCHC 33.7 RDW Std Deviation 43.8 Plt Count 313 Neut % (Auto) 69 Lymph % (Auto) 16 [place] % (Auto) 13 H Eos % (Auto) 1 Baso % (Auto) 0 Neut # (Auto) 6.6 Lymph # (Auto) 1.5 [place] # (Auto) 1.3 H Eos # (Auto) 0.1 Baso # (Auto) 0.0 Immature Gran # (Auto) 0.04 H Absolute Nucleated RBC 0.00 Immature Gran % 0 Nucleated RBC % 0 Sodium 139 Potassium 3.2 L D Chloride 105 Carbon Dioxide 23.1 Anion Gap 11 BUN 16 Creatinine 0.6 Estim Creat Clear Calc 101.4 eGFR > 60 BUN/Creatinine Ratio 27 H Glucose 93 Calculated Osmolality 278 Calcium 8.1 L Corrected Calcium 8.7 Phosphorus 2.5 Magnesium 2.0 Total Bilirubin 0.5 AST 24 ALT 13 Alkaline Phosphatase 71 Total Protein 5.0 L Albumin 3.2 L Globulin 1.8 L Albumin/Globulin Ratio 1.8 Impressions Impression: Good results with GoLytely having multiple bowel movements Colonic distention resolving Additional GoLytely for a colonoscopy tomorrow Assessment & Plan Time Spent With Patient Time: Total time spent is greater than 50% in coordination of care (as documented) at patient's floor/unit and/or counseling patient:
[2025-05-07] VITALS (21 sets, daily range): BP systolic 114–170; BP diastolic 69–107; PULSE 84–106; RESP 14–96; TEMP 36.3–37.4; O2SAT 91–98; BMI 15.0
[2025-05-07] MEDS: HYDROmorphone INJ 2 MG/ML VIAL 0.5 MG IVP ×3 (01:30→21:29)
[2025-05-07] MEDS: PIPER/TAZO 3.375 GM PREMIX 3.375 G/50 ML BAG IV ×3 (05:24→21:07)
[2025-05-07 06:18] LABS: Basophils # (Auto) 0.1 Thou/mm3 (0.0-0.2); Basophils % (Auto) 1 % (0-2.5); Eosinophils # (Auto) 0.2 Thou/mm3 (0.0-0.5); Eosinophils % (Auto) 2 % (0-10); Hematocrit 24.6 % (36.0-46.0); Hemoglobin 8.1 g/dL (12.0-16.0); Immature Granulocytes Auto 0.06 Thou/mm3 (0.00-0.00); Lymphocytes # (Auto) 1.1 Thou/mm3 (1.0-4.8); Lymphocytes % (Auto) 12 % (10-50); Mean Corpuscular HGB Conc 32.9 g/dl (31.0-37.0); Mean Corpuscular Hemoglobin 26.7 pg (25.0-35.0); Mean Corpuscular Volume 81 fL (80-100); Monocytes # (Auto) 0.5 Thou/mm3 (0.0-0.8); Monocytes % (Auto) 6 % (0-12); Neutrophils # (Auto) 6.8 Thou/mm3 (1.8-7.7); Neutrophils % (Auto) 78 % (37-80); Nucleated Red Blood Cell # 0.00 Thou/mm3 (0.00-0.00); Nucleated Red Blood Cell % 0 /100 WBC (0); Platelet Count 308 Thou/mm3 (140-440); RDW Standard Deviation 43.4 fL (36.4-46.3); Red Blood Count 3.03 Miln/mm3 (4.00-5.20); White Blood Count 8.7 Thou/mm3 (3.6-11.0)
[2025-05-07 06:52] LABS: Alanine Aminotransferase 15 U/L (10-49); Albumin, Serum 3.3 gm/dL (3.4-4.8); Albumin/Globulin Ratio 1.9 (1.2-2.2); Alkaline Phosphatase 81 U/L (46-116); Anion Gap 13 (7-16); Aspartate Amino Transferase 27 U/L (0-34); BUN/Creatinine Ratio 26 Ratio (12-20); Bilirubin,Total 0.5 mg/dL (0.3-1.2); Blood Urea Nitrogen 13 mg/dL (9-23); Calcium 8.0 mg/dL (8.3-10.6); Calcium (Corrected) 8.6 mg/dL (8.5-10.1); Carbon Dioxide 22.4 mMol/L (20.0-31.0); Chloride 106 mMol/L (98-107); Creatinine (Component) 0.5 mg/dL (0.6-1.3); Estimated Creatinine Clearance 121.7 mL/min (>60); Globulin 1.7 gm/dL (2.3-3.5); Glucose 74 mg/dL (74-106); Magnesium 1.9 mg/dL (1.6-2.6); Osmolality,Calculated 280 (275-295); Phosphorous 2.5 mg/dL (2.4-5.1); Potassium 2.9 mMol/L (3.4-5.1); Sodium 141 mMol/L (136-145); Total Protein 5.0 gm/dL (5.7-8.2); eGFR > 60 See Note
--- NOTE | 2025-05-07 07:36 | ESPR_ITS ---
<Statement entered by Antonio Vu MD - 05/07/25 16:26> Patient seen and examined at bedside. I discussed and supervised with the fall intern physician who took care of this patient. I personally saw and examined the patient. I agree with most of the assessment and plan. Plan of care discussed with attending Dr. Calloway. Antonio Vu MD PGY-2 Documentation for date of: 05/07/25 Subjective Subjective Interval history: Patient finished 1st GoLytely yesterday. Had 11 bowel movement. Trace abdominal pain remaining. Currently on second GoLytely. NPO since last midnight. Planned for Colonoscopy today. Will continue to follow up. Patient's potassium level dropped from 3.2 to 2.9, likely due to large bowel movements for last couple days. (Had total of 31 BM for last 2 days). Yesterday the patient was given IV KCl 40 mEq x1. Today patient was given another IV KCl 40 mEq x1, and also KCl 40 mEq p.o. x 1. Ordered repeat renal function test at 1 PM. No Overnight events. Labs reviewed and patient examined at the bedside. Denies chest pain, palpation, SOB, N/V, fevers or chills. Exam Vital Signs Temp Pulse Resp BP Pulse Ox O2 Del Method 98.8 F 95 17 118/79 91 L Room Air 05/07/25 04:00 05/07/25 04:00 05/07/25 04:00 05/07/25 04:00 05/07/25 04:00 05/07/25 04:00 Narrative Exam General: Mild distress, AAO x3 Eye: Normal conjunctiva, no scleral icterus HENT: Normocephalic, atraumatic, hearing intact to conversation at normal volume, moist oral mucosa Neck: Supple, non-tender, no JVD, no lymphadenopathy Lungs: Non-labored respirations, symmetric chest rise, Clear to auscultate bilaterally, No wheezing, rhonchi, crackles Heart: Peripheral pulses intact bilaterally, Regular Rate and Rhythm. Abdomen: No palpable masses, Mildly Distended abdomen, Mild abdominal tenderness on palpation. Musculoskeletal: Normal range of motion and strength, No cyanosis or edema, No visible joint swelling Skin: Multiple echymosis in left leg due to left knee surgery 1 week ago. Psychiatric: Cooperative, appropriate mood and affect, Awake and alert, A gitated. Neuro: Cranial nerves II-XII grossly intact. Strength 5/5 throughout. Sensations intact to light touch. Objective Labs 05/07/25 05:15 05/07/25 12:31 Labs: Laboratory Results - last 24 hr 05/07/25 05:15 WBC 8.7 RBC 3.03 L Hgb 8.1 L Hct 24.6 L MCV 81 MCH 26.7 MCHC 32.9 RDW Std Deviation 43.4 Plt Count 308 Neut % (Auto) 78 Lymph % (Auto) 12 [place] % (Auto) 6 Eos % (Auto) 2 Baso % (Auto) 1 Neut # (Auto) 6.8 Lymph # (Auto) 1.1 [place] # (Auto) 0.5 Eos # (Auto) 0.2 Baso # (Auto) 0.1 Immature Gran # (Auto) 0.06 H Absolute Nucleated RBC 0.00 Immature Gran % 1 H Nucleated RBC % 0 Sodium 141 Potassium 2.9 L Chloride 106 Carbon Dioxide 22.4 Anion Gap 13 BUN 13 Creatinine 0.5 L Estim Creat Clear Calc 121.7 eGFR > 60 BUN/Creatinine Ratio 26 H Glucose 74 Calculated Osmolality 280 Calcium 8.0 L Corrected Calcium 8.6 Phosphorus 2.5 Magnesium 1.9 Total Bilirubin 0.5 AST 27 ALT 15 Alkaline Phosphatase 81 Total Protein 5.0 L Albumin 3.3 L Globulin 1.7 L Albumin/Globulin Ratio 1.9 Quality Measures Quality Measures none Assessment & Plan Assessment Current Active Medications: Generic Name Dose Route Start Last Admin Trade Name Yan PRN Reason Stop Dose Admin Acetaminophen 650 mg 05/04/25 21:00 05/06/25 14:47 Acetaminophen 325 Mg Tablet PO 06/03/25 20:59 650 mg Q6H PRN Administration Fever >100.4 or pain 1-3 Hydromorphone HCl 0.5 mg 05/04/25 21:19 05/07/25 07:34 Hydromorphone Inj 2 Mg/Ml Vial IVP 05/09/25 21:18 0.5 mg Q4HR PRN Administration pain 7-10 Lactated Ringer's 1,000 mls @ 60 mls/hr 05/04/25 21:14 05/06/25 04:58 Lactated Ringers IV 06/03/25 21:13 60 mls/hr .[id number] KIRAN Administration Piperacillin/Tazobactam/Dextrose 3.375 g in 50 mls @ 12.5 mls/hr 05/06/25 08:03 05/07/25 05:24 Zosyn IV 05/13/25 08:02 12.5 mls/hr Q8HR KIRAN Administration Protocol Ondansetron HCl 4 mg 05/04/25 15:46 05/05/25 09:07 Ondansetron Inj 2 Mg/Ml Inj 2 Ml IVP 06/03/25 15:45 4 mg Q6HR PRN Administration NAUSEA OR VOMITING Protocol Pantoprazole Sodium 40 mg 05/05/25 09:00 05/06/25 08:56 Pantoprazole Inj 40 Mg Vial IVP 06/04/25 08:59 40 mg QDAY KIRAN Administration Plan Patient is a 60-year-old female with a past medical history of hypertension and and possible arthroplasty of the left knee about 1 week ago who presented to the emergency room via private vehicle with a chief complaint of severe abdominal pain, 10 out of 10. Patient admitted for psuedo large bowel obstruction vs toxic colitis. #Psuedo large bowel obstruction vs toxic colitis #Lactic acidosis -Recent L knee surgery, on opiates, has no BM in one week. Worsening abdominal pain. lactic acid 2.1 WBC 20.1. -Abd XR (05/04/2025): Distended abdomen. The proximal transverse colon is distended to 8.6 cm in caliber. Nonspecific bowel findings. Findings could represent constipation and ileus. -CT abd/pelvis (05/04/2025): Extensive distention of the colon, most severely the ascending colon, with gas-liquid and fecal matter. The cecum is dilated up to 8.6 cm in caliber. The mid transverse colon measures 6.1 cm in caliber, and the proximal descending colon measures approximately 4 cm in caliber. No evidence for an obstructing mass. 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 No evidence for pneumatosis coli, portal venous gas, pneumoperitoneum or ascites. Positive for Hiatal hernia without acute complication -NG tube placement was attempted twice but was unsuccessful due to coiling within the patient's large hiatal hernia. GI was consulted for assistance with NG tube placement, which they agreed. -05/05: Based on General Surgery recommendations, a single-contrast barium enema with gastrografin was ordered to remove stool and gas, and to rule out mechanical bowel obstruction. -After barium enema, abdominal pain has been reduced -2nd Abd XR (05/05/2025): Progressive colonic distention with with gas and large amount of fecal matter. Cecum 11.2cm in caliber, Proximal transverse colon 9cm in caliber. No evidence for pneumatosis or pneumoperitoneum. -3rd Abd XR (05/05/2025) After Barium enema: Prominent colonic distention No free air, Prominent colonic ileus -4th Abd XR (05/06/2025) After Barium enema: Persistent prominent gaseous distention of redundant colon, most severely involving the cecum, measuring 11.4 cm in caliber. There is more pronounced gaseous distention of the left hemicolon, No free air is detected. -05/07: Patient finished 1st GoLytely yesterday. Had 11 bowel movement. Trace abdominal pain remaining. Currently on second GoLytely. NPO since last midnight. Planned for Colonoscopy today. Plan: -IV tylenol pain control - limit to 4g/day -Dilaudid pain control -IV LR 60ml/hr -If patient has adynamic ileus without mechanical bowel obstruction, neostigmine injection will be considered. -Consulted GI, Dr. Alonzo, appreciate recommendations -Consulted Surgery, Dr. Lincoln, appreciate recommendations -Consulted Orthopedics, Dr. Hendricks, appreciate recommendations -Currently on Second GoLytely. Planned for colonoscopy likely today. Currently NPO. #UTI -Urinary symptoms, Urine cola colored, +1 protein RBC 13 WBC 86 Sq epithelial 10H Bacteria +4, not a clean catch, but also lots of blood and dark color. -Urine culture was positive for Klebsiella oxytoca, ESBL positive. Plan: -Changed her antibiotics to IV Zosyn 3.375 g every 6 hours (05/06-) -Discontinued IV Ceftriaxone (05/04-05/06) -Will continue to monitor. #Hypokalemia -05/07: Patient's potassium level dropped from 3.2 to 2.9. Yesterday the patient was given IV KCl 40 mEq x1. Today patient was given another IV KCl 40 mEq x1, and also KCl 40 mEq p.o. x 1. -Likely combination of diluation from IVF and Diarrhea from barium enema and Golytely. Patient had a total of 31 bowel movements on 05/05 and 05/06. -Ordered repeat renal function test. -Will continue to monitor. #Asymptomatic Hyponatremia - Resolved #Hx of HTN Can consider restarting home meds of amlodipine or losartan pending med rec Health Maintenance: Code status: Full DVT prophylaxis: SCDs pending GI procedure GI prophylaxis: protonix Diet: NPO for colonoscopy Funez: None Lines: PIV Supplemental O2: None Disposition: Med surg Assessment and plan discussed with my attending physician Dr. Calloway and Dr. Vu (PGY-2) Dr. Veras (PGY-1) - Internal medicine resident Attending Provider Attestation/Addendum I have discussed and was present for the essential components of the history, physical examination, diagnosis, and treatment plan with the resident. I agree with the patient's care as documented by the resident and amended herein by me. Tristan Calloway DO. Although this document has been carefully reviewed, there may still be some phonetic and other typographical errors. These errors are purely grammatical due to imperfections in the software program and should not be construed in any way to compromise the substance of the patient's medical care during this visit. Patient seen and evaluated this AM. No acute events overnight, vital signs stable, patient afebrile, patient reportedly had 11 bowel movements overnight. Hemoglobin low at 8.1 but stable. Potassium 2.9 today which has been repleted. Urine culture demonstrating Klebsiella ESBL in which she has been treated for Zosyn. Patient did undergo colonoscopy today demonstrating internal hemorrhoids, mild diverticulosis in the sigmoid and descending colon however no evidence of diverticular bleeding was noted, the colonic prep was noted to be very poor all the way up to the cecum hence the colonoscopy was only good to rule out gross lesions however smaller lesions could not be ruled out. Recommended to continue high-fiber diet indefinitely, MiraLAX 1 tablespoonful twice a day, lactulose 20 g once a day, Senokot twice a day more water intake at least 64 ounces and a plant-based diet. We appreciate GI recommendations. Will continue to monitor closely, possible DC tomorrow 05/08 pending continued clinical improvement.
[2025-05-07] MEDS: RINGERS LACTATED 1000 ML 1,000 ML 60 ML IV (07:41)
[2025-05-07] MEDS: POTASSIUM CHL 10 mEq IVPB 10 MEQ/100 ML BAG 100 MEQ IV ×4 (07:55→11:42)
--- NOTE | 2025-05-07 08:50 | PC.SS ---
Follow up note: Colonoscopy pending. Pt will return home upon dc.
[2025-05-07 13:16] LABS: Albumin, Serum 3.3 gm/dL (3.4-4.8); Anion Gap 12 (7-16); BUN/Creatinine Ratio 24 Ratio (12-20); Blood Urea Nitrogen 12 mg/dL (9-23); Calcium 8.0 mg/dL (8.3-10.6); Calcium (Corrected) 8.6 mg/dL (8.5-10.1); Carbon Dioxide 21.3 mMol/L (20.0-31.0); Chloride 107 mMol/L (98-107); Creatinine (Component) 0.5 mg/dL (0.6-1.3); Estimated Creatinine Clearance 121.7 mL/min (>60); Glucose 69 mg/dL (74-106); Osmolality,Calculated 277 (275-295); Phosphorous 2.2 mg/dL (2.4-5.1); Potassium 3.8 mMol/L (3.4-5.1); Sodium 140 mMol/L (136-145); eGFR > 60 See Note
--- NOTE | 2025-05-07 15:36 | ESCONSULT_ITS ---
RE: MILY VERDUGO : 1965 DATE OF CONSULTATION: 05/07/2025 Thank you, ____ for asking me to consult on the patient whom I saw on 05/07/2025. Patient is status post left total knee replacement done about [address] Kevin Hendricks. Patient is admitted for abdominal distension. Working diagnosis of bowel obstruction was made. Patient was given medication for bowel decompression and it appears that it has worked. Patient has passed stool and gas quite a few times. On 05/07/2025, patient is scheduled for colonoscopy and is prepared for that. There is no issue with the left total knee replacement. I checked down. Wound is healthy. Range of motion is quite good. Patient is able to put full weight on it. Patient has appointment for 05/14/[address] Kevin Hendricks. I advised patient to keep the appointment with the operating surgeon. Once again, I thank you for letting me take part in the management of the patient. DT: 14:26:23 TT: 15:35:00 Ref: [id number] - TID: [id number]
--- NOTE | 2025-05-07 18:52 | SUR.PHASEI ---
1837 patient is sleepy and arousable, breathing unlabored, s/p colonoscopy under IV sedation, report received from Hellen BELCHER
--- NOTE | 2025-05-07 19:36 | SUR.PHASEI ---
1911 patient is awake, alert, breathing unlabored, report given to Gerard RN, patient transferred back to room 354 with tele box
--- NOTE | 2025-05-07 21:13 | PC.NURSE ---
Patient refused 2100 senna and miralax. Pt and family educated on medications. Pt still refused.
--- NOTE | 2025-05-07 21:14 | PC.NURSE ---
pt refused 2100 miralax and senna. Pt educated on medications. Pt still refused.
--- NOTE | 2025-05-07 21:24 | PC.NURSE ---
SIMI Gee spoke with Dr. Cullen due to Zosyn showing administration warning due to allergy to PCN. Dr. Cullen stated to go ahead with the administration due to the patient already receiving zosyn.
[2025-05-08] VITALS (7 sets, daily range): BP systolic 115–137; BP diastolic 61–93; PULSE 77–94; RESP 16–95; TEMP 36.5–37.1; O2SAT 93–97
[2025-05-08] MEDS: HYDROmorphone INJ 2 MG/ML VIAL 0.5 MG IVP (01:35)
[2025-05-08] MEDS: PIPER/TAZO 3.375 GM PREMIX 3.375 G/50 ML BAG IV (06:01)
[2025-05-08 06:41] LABS: Basophils # (Auto) 0.1 Thou/mm3 (0.0-0.2); Basophils % (Auto) 1 % (0-2.5); Eosinophils # (Auto) 0.2 Thou/mm3 (0.0-0.5); Eosinophils % (Auto) 2 % (0-10); Hematocrit 26.2 % (36.0-46.0); Immature Granulocytes Auto 0.16 Thou/mm3 (0.00-0.00); Lymphocytes # (Auto) 1.2 Thou/mm3 (1.0-4.8); Lymphocytes % (Auto) 13 % (10-50); Mean Corpuscular HGB Conc 32.4 g/dl (31.0-37.0); Mean Corpuscular Hemoglobin 26.2 pg (25.0-35.0); Mean Corpuscular Volume 81 fL (80-100); Monocytes # (Auto) 0.6 Thou/mm3 (0.0-0.8); Monocytes % (Auto) 6 % (0-12); Neutrophils # (Auto) 6.9 Thou/mm3 (1.8-7.7); Neutrophils % (Auto) 76 % (37-80); Nucleated Red Blood Cell # 0.02 Thou/mm3 (0.00-0.00); Nucleated Red Blood Cell % 0 /100 WBC (0); Platelet Count 379 Thou/mm3 (140-440); RDW Standard Deviation 43.1 fL (36.4-46.3); Red Blood Count 3.25 Miln/mm3 (4.00-5.20); White Blood Count 9.0 Thou/mm3 (3.6-11.0)
[2025-05-08 06:44] LABS: Hemoglobin 8.5 g/dL (12.0-16.0)
[2025-05-08 07:25] LABS: Alanine Aminotransferase 17 U/L (10-49); Albumin, Serum 3.5 gm/dL (3.4-4.8); Albumin/Globulin Ratio 1.8 (1.2-2.2); Alkaline Phosphatase 101 U/L (46-116); Anion Gap 13 (7-16); Aspartate Amino Transferase 32 U/L (0-34); BUN/Creatinine Ratio 15 Ratio (12-20); Bilirubin,Total 0.5 mg/dL (0.3-1.2); Blood Urea Nitrogen 9 mg/dL (9-23); Calcium 8.6 mg/dL (8.3-10.6); Calcium (Corrected) 9.0 mg/dL (8.5-10.1); Carbon Dioxide 20.6 mMol/L (20.0-31.0); Chloride 106 mMol/L (98-107); Creatinine (Component) 0.6 mg/dL (0.6-1.3); Estimated Creatinine Clearance 101.4 mL/min (>60); Globulin 1.9 gm/dL (2.3-3.5); Glucose 73 mg/dL (74-106); Magnesium 1.8 mg/dL (1.6-2.6); Osmolality,Calculated 277 (275-295); Phosphorous 2.5 mg/dL (2.4-5.1); Potassium 3.5 mMol/L (3.4-5.1); Sodium 140 mMol/L (136-145); Total Protein 5.4 gm/dL (5.7-8.2); eGFR > 60 See Note
--- NOTE | 2025-05-08 08:39 | PD.RESPRO ---
Documentation for date of: 05/08/25 Exam Vital Signs Temp Pulse Resp BP Pulse Ox O2 Del Method 97.7 F 91 17 131/85 H 96 Room Air 05/08/25 04:00 05/08/25 04:00 05/08/25 04:00 05/08/25 04:00 05/08/25 04:00 05/08/25 04:00 Objective Labs 05/08/25 05:35 05/08/25 05:35 Labs: Laboratory Results - last 24 hr 05/07/25 05/08/25 12:31 05:35 WBC 9.0 RBC 3.25 L Hgb 8.5 L Hct 26.2 L MCV 81 MCH 26.2 MCHC 32.4 RDW Std Deviation 43.1 Plt Count 379 D Neut % (Auto) 76 Lymph % (Auto) 13 [place] % (Auto) 6 Eos % (Auto) 2 Baso % (Auto) 1 Neut # (Auto) 6.9 Lymph # (Auto) 1.2 [place] # (Auto) 0.6 Eos # (Auto) 0.2 Baso # (Auto) 0.1 Immature Gran # (Auto) 0.16 H Absolute Nucleated RBC 0.02 H Immature Gran % 2 H Nucleated RBC % 0 Sodium 140 140 Potassium 3.8 D 3.5 Chloride 107 106 Carbon Dioxide 21.3 20.6 Anion Gap 12 13 BUN 12 9 Creatinine 0.5 L 0.6 Estim Creat Clear Calc 121.7 101.4 eGFR > 60 > 60 BUN/Creatinine Ratio 24 H 15 Glucose 69 L 73 L Calculated Osmolality 277 277 Calcium 8.0 L 8.6 Corrected Calcium 8.6 9.0 Phosphorus 2.2 L 2.5 Magnesium 1.8 Total Bilirubin 0.5 AST 32 ALT 17 Alkaline Phosphatase 101 D Total Protein 5.4 L Albumin 3.3 L 3.5 Globulin 1.9 L Albumin/Globulin Ratio 1.8 Quality Measures Quality Measures none Assessment & Plan Assessment Current Active Medications: Generic Name Dose Route Start Last Admin Trade Name Freq PRN Reason Stop Dose Admin Acetaminophen 650 mg 05/04/25 21:00 05/06/25 14:47 Acetaminophen 325 Mg Tablet PO 06/03/25 20:59 650 mg Q6H PRN Administration Fever >100.4 or pain 1-3 Hydromorphone HCl 0.5 mg 05/04/25 21:19 05/08/25 01:35 Hydromorphone Inj 2 Mg/Ml Vial IVP 05/09/25 21:18 0.5 mg Q4HR PRN Administration pain 7-10 Piperacillin/Tazobactam/Dextrose 3.375 g in 50 mls @ 12.5 mls/hr 05/06/25 08:03 05/08/25 06:01 Zosyn IV 05/13/25 08:02 12.5 mls/hr Q8HR KIRAN Administration Protocol Ondansetron HCl 4 mg 05/04/25 15:46 05/05/25 09:07 Ondansetron Inj 2 Mg/Ml Inj 2 Ml IVP 06/03/25 15:45 4 mg Q6HR PRN Administration NAUSEA OR VOMITING Protocol Pantoprazole Sodium 40 mg 05/05/25 09:00 05/07/25 08:00 Pantoprazole Inj 40 Mg Vial IVP 06/04/25 08:59 40 mg QDAY KIRAN Administration Polyethylene Glycol 17 gm 05/07/25 21:00 05/07/25 21:13 Polyethylene Glycol 17 Gm Packet PO 06/06/25 20:59 Not Given BID KIRAN Sennosides 1 tab 05/07/25 21:00 05/07/25 21:13 Senna Tablet PO 06/06/25 20:59 Not Given BID KIRAN Protocol
[2025-05-08] MEDS: MAGNESIUM OXIDE 400 MG TABLET PO (08:59)
[2025-05-08] MEDS: NAPH,KPH MBDB 1 PACKET (1.5 GM) PO (08:59)
[2025-05-08] MEDS: POLYETHYLENE GLYCOL 17 GM PACKET PO (09:07)
[2025-05-08] MEDS: HYDROcodone/APAP 5/325 TABLET 1 TAB PO (11:16)
--- NOTE | 2025-05-08 11:43 | ESDS_ITS ---
<Statement entered by Patricia Boucher MD - 05/08/25 15:01> Patient was seen and examined by me personally. I have reviewed the below documentation by the team resident and agree with its findings. Discharge plan was discussed with the attending, Dr. Bk Gerard MD Internal Medicine, PGY-2 Planned Discharge Date 05/08/25 DS: Providers Provider Date of admission: 05/04/25 21:33 Primary care physician: Physician No Primary/Family Admitting Provider: Presley Barrientos MD Attending Provider on Admission: Bk Calloway DO Consults: 05/04/25 19:09 Consult to Gastroenterology Stat Comment: Large bowel distention, concern for obstruction. Consulting Provider: To Alonzo 05/04/25 21:11 Referral Physical Therapy Stat Comment: Physician Instructions: Instructions: L knee s/p surgery 05/05/25 03:41 [facility] Referral - Knowledge Deficit Routine Comment: Positive screening for knowledge deficit needs. 05/05/25 09:07 Consult to General Surgery Routine Comment: GI pseudo-obstruction after left knee surgery Consulting Provider: Marisabel Faria 05/06/25 10:13 Consult to Orthopedic Routine Comment: Left knee arthroplasty Consulting Provider: Jamey Hendricks Attending Provider on DC: Bárbara Veras DO Discharging Provider: Bárbara Veras DO DS: Diagnosis Problem List Completed Was Problem List Reviewed/Reconciled?: Yes Hospital Course Hospital Course Hospital course: Summary: Patient is a 60-year-old female with a past medical history of hypertension and and possible arthroplasty of the left knee about 1 week ago who presented to the emergency room via private vehicle with a chief complaint of severe abdominal pain, 10 out of 10. Patient admitted for psuedo large bowel obstruction vs toxic colitis. Attempted NG tube placement but was unable to be placed due to patient's large hiatal hernia. Patient was given barium enema which significantly reduced patient's abdominal pain. Patient received GoLytely x 2 for colonoscopy (05/07/2025) which showed internal hemorrhoids, mild diverticulosis in the sigmoid and descending colon, and no diverticular bleeding. Patient had almost no abdominal pain after barium enema, GoLytely x 2, and a colonoscopy with total of 35 bowel movements over 3 days of hospital stay. Patient was tolerating regular diet, vitals and labs were stable, and was discharged. ED Couse: -Vitals: 104/65 HR 100 RR 20 T 99.5F O2 sat 95% -Labs WBC 20.1 Hgb 11.1 Na 132 -Abd XR (05/04/2025): Distended abdomen. The proximal transverse colon is distended to 8.6 cm in caliber. Nonspecific bowel findings. Findings could represent constipation and ileus. -CT abd/pelvis (05/04/2025): Extensive distention of the colon, most severely the ascending colon, with gas-liquid and fecal matter. The cecum is dilated up to 8.6 cm in caliber. The mid transverse colon measures 6.1 cm in caliber, and the proximal descending colon measures approximately 4 cm in caliber. No evidence for an obstructing mass. 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 No evidence for pneumatosis coli, portal venous gas, pneumoperitoneum or ascites. Positive for Hiatal hernia without acute complication In ED, patient was given: Morphine, LR, ceftriaxone, cefazolin, metronidazole, dilaudid, rectal tube placed, Consults GI for toxic colitis Hospital Course: Upon admission to the hospital, PEG tube was placed, started IV ceftriaxone 1 g every 12 HR, IVF LR. NG tube placement was attempted twice but was unsuccessful due to coiling within the patient's large hiatal hernia. GI was consulted for assistance with NG tube placement, which they agreed. 2nd Abd XR (05/05/2025) showed Progressive colonic distention with with gas and large amount of fecal matter. Cecum 11.2cm in caliber, Proximal transverse colon 9cm in caliber. No evidence for pneumatosis or pneumoperitoneum. Based on General Surgery recommendations, a single-contrast barium enema with gastrografin was ordered to remove stool and gas, and to rule out mechanical bowel obstruction. After barium enema, patient's abdominal pain significantly improved. But 3rd and 4th Abd XR still showed Persistent prominent gaseous distention of redundant colon, most severely involving the cecum, measuring 11.4 cm in caliber without free air. Patient started taking GoLytely. NG tube was not placed as patient was drinking fine. Meanwhile, Urine culture was positive for Klebsiella oxytoca, ESBL positive so her antibiotic was changed from IV ceftriaxone to IV Zosyn 3.375 g every 6 hours. Patient finished 2 GoLytely and received Colonoscopy (05/07/2025) which showed internal hemorrhoids and mild diverticulosis in the sigmoid colon and descending colon. There are no evidence of diverticular bleeding, however the preparation of the colon was very poor so was unable to rule out small lesions. GI recommended indefinite high-fiber diet, MiraLAX 1 tablespoon twice a day, lactulose 20 g once a day, Senokot twice a day and greater than 64 ounces of water intake per day. After barium enema, GoLytely x 2, and colonoscopy, patient's abdominal pain has been significantly reduced, with total of 35 bowel movements over 3 days of hospital stay. Patient was tolerating regular diet well and vital and labs were stable. Patient was discharged. #Psuedo large bowel obstruction #Lactic acidosis #Klebsiella oxytoca ESBL UTI #Hypokalemia #Asymptomatic Hyponatremia - Resolved #Hx of HTN Instructions: You have been started on the following medications: - Lactulose 20g once daily - MiraLAX 1 tablespoon twice daily - Senokot twice daily - Macrobid twice daily, 5 tabs total Please continue taking all other medications as previously prescribed. Please drink 64 ounces of water MINIMUM daily Recommend a plant-based, high fiber diet. Please follow up with your primary care doctor in 7-10 days. Follow up with Orthopedic Surgeon for the appointment for 05/14/[address] Kevin Hendricks. Return to the ED if you develop new or worsening symptoms. Assessment and plan discussed with my attending physician Dr. Calloway and Dr. Boucher (PGY-2) Dr. Veras (PGY-1) - Internal medicine resident Time Spent with Patient Time attestation: Total time spent providing and/or coordinating discharge services: Time spent: Greater than 30 minutes Exam Vital Signs Temp Pulse Resp BP Pulse Ox O2 Del Method 98.8 F 82 16 132/80 H 97 Room Air 05/08/25 07:45 05/08/25 08:00 05/08/25 07:45 05/08/25 07:45 05/08/25 07:45 05/08/25 07:45 Narrative Exam General: No acute distress, well nourished, AAO x3 Eye: Normal conjunctiva, no scleral icterus HENT: Normocephalic, atraumatic, hearing intact to conversation at normal volume, moist oral mucosa Neck: Supple, non-tender, no JVD, no lymphadenopathy Lungs: Non-labored respirations, symmetric chest rise, Clear to auscultate bilaterally, No wheezing, rhonchi, crackles Heart: Peripheral pulses intact bilaterally, Regular Rate and Rhythm. Abdomen: No palpable masses, Non distended, No tenderness on palpation in all 4 quadrants. Musculoskeletal: Normal range of motion and strength, No cyanosis or edema, No visible joint swelling Skin: Multiple echymosis in left leg due to left knee surgery 1 week ago. Psychiatric: Cooperative, appropriate mood and affect, Awake and alert. Neuro: Cranial nerves II-XII grossly intact. Strength 5/5 throughout. Sensations intact to light touch. Discharge Plan Plan Patient Disposition: HOME (Self Care) Patient condition on transfer: Stable Care Plan Goals: You have been started on the following medications: - Lactulose 20g once daily - MiraLAX 1 tablespoon twice daily - Senokot twice daily - Macrobid twice daily, 5 tabs total Please continue taking all other medications as previously prescribed. Please drink 64 ounces of water MINIMUM daily Recommend a plant-based, high fiber diet. Please follow up with your primary care doctor in 7-10 days. Follow up with Orthopedic Surgeon for the appointment for 05/14/[address] Kevin Hendricks. Return to the ED if you develop new or worsening symptoms. Prescriptions/Referrals Prescriptions/Med Rec: New lactulose 20 gram packet 20 g PO QDAY 30 Days Qty: 30 2RF polyethylene glycol 3350 [Miralax] 17 gram/dose powder 4 g PO QDAY 30 Days Qty: 120 2RF sennosides [Senokot] 8.6 mg tablet 8.6 mg PO BID PRN (Reason: constipation) 30 Days Qty: 60 2RF nitrofurantoin monohyd/m-cryst [Macrobid] 100 mg capsule 100 mg PO BID Qty: 5 0RF Rx Instructions: must administer with a meal/food Continued amlodipine 10 mg tablet 10 mg PO DAILY Patient Comments: TAKE 1 TABLET BY MOUTH ONCE A DAY losartan 100 mg tablet 100 mg PO DAILY Patient Comments: TAKE 1 TABLET BY MOUTH ONCE A DAY pregabalin 150 mg capsule 150 mg PO Q12H PRN (Reason: pain) Patient Comments: TAKE 1 CAPSULE BY MOUTH EVERY 12 HOURS NEEDED FOR PAIN celecoxib 200 mg capsule 200 mg PO Q12H PRN (Reason: pain) Patient Comments: TAKE 1 CAPSULE BY MOUTH EVERY 12 HOURS NEEDED FOR PAIN USE BUCK MEDICATION ANTES DE NORCO (BUCK MEDICATION ES MEJOR) aspirin 81 mg tablet,chewable 1 tab PO Q12HR Patient Comments: CHEW 1 TABLET BY MOUTH EVERY 12 HOURS START AFTER SURGERY FOR YOUNG DILUYENTE Referrals: No Primary/Family,Physician [Primary Care Provider] Patient/Caregiver Discharge Instructions Discharge Activity: activity as tolerated Education Materials: Colonoscopy, Treating Constipation, Eating a High-Fiber Diet, High Fiber Diet Dc, Obstruction Intestinal, ED Constipation (Adult) Print Language: Divehi Stand Alone Forms: [employer] Award Info., Patient Portal Info Letter Discharge Order Discharge Orders: Discharge (Routine); Ordered 05/08/25 Ordered By: Patricia Boucher Quality Discharge Quality Measures VTE prophylaxis Attestestation MD Attestation Unfortunately the patient will not be able to be discharged today on 05/08 due to a mixup in the [facility]PAP orders at the [facility], hopefully tomorrow 05/09
== END 2025-05-08 13:00 | disposition home or self-care (01) | DRG 247 ==
LOC: SERX 19:25 → SERHOLD 21:41 → S3NX 05-05 06:06
PROVIDERS: Specialist; Admitting Provider Internal Medicine; Emergency Provider Emergency Medicine; Visit Provider Student in an Organized Health Care Education/Training Program
PROC: 0DJD8ZZ Inspection of Lower Intestinal Tract, Via Natural or Artificial Opening Endoscopic (ICD-10-PCS; CPT 45378; principal; 2025-05-07 18:30)
DX: K56.609 Unspecified intestinal obstruction, unspecified as to partial versus complete obstruction (principal); I10 Essential (primary) hypertension; E87.20 Acidosis, unspecified; K44.9 Diaphragmatic hernia without obstruction or gangrene; N39.0 Urinary tract infection, site not specified; E87.1 Hypo-osmolality and hyponatremia; K52.1 Toxic gastroenteritis and colitis; K56.41 Fecal impaction; B96.1 Klebsiella pneumoniae [K. pneumoniae] as the cause of diseases classified elsewhere; E87.6 Hypokalemia; K57.30 Diverticulosis of large intestine without perforation or abscess without bleeding; K64.1 Second degree hemorrhoids; Z16.12 Extended spectrum beta lactamase (ESBL) resistance; Z96.652 Presence of left artificial knee joint; Z79.899 Other long term (current) drug therapy; Z88.2 Allergy status to sulfonamides; K59.81 Ogilvie syndrome; Z88.0 Allergy status to penicillin
CPT/HCPCS: 36415; 74018; 74176; 74270; 80053; 80069; 80307; 80320; 81001; 81025; 83605; 83690; 83735; 84100; 84443; 85025; 85610; 85730; 87040; 87077; 87086; 87186; 93005; 93225; 96361; 96365; 96366; 96375; 96376; 97162; 99284; A4649; J0131; J0696; J1171; J1200; J2250; J2270; J2405; J2470; J2543; J3010; J3480; J3490; J7120; Q9963; A9270; G0480; J1836